=== PATIENT | male | born 1930 | race Caucasian/White ===

== ENCOUNTER 2016-10-16 14:57 | Emergency (ER) | payer MEDICARE ==
[~2016-10-16] VITALS: Ht 172.7 cm; Wt 70.0 kg
[~2016-10-16 14:57] MED LIST: ALBU8I INH; ALLE10TA5 PO; AMMO12CR10 TOP; ASPI81TA82 PO; BENGAY TOP; CLOB-50 TOP; DESE1CRE TOP; GLIP5 PO; LISI-360 PO; METHO500 PO; METO100T PO; NITR0.4S SL; PROT40TA PO; ROBISYP OR; SIMV80TA OR; TERA2CAP3 PO; TRAM50TA PO; [UNRECOGNIZED DRUG - CODE] TOP
[2016-10-16 14:59] VITALS: BP 78/54; PULSE 70; RESP 16; TEMP 98.2; O2SAT 98
[2016-10-16 15:04] VITALS: BP 69/48
--- NOTE | 2016-10-16 15:05 | PD ---
Physical Exam Time Seen by Provider: 15:05 Narrative 86 y/o male here with n/v/d. No fever. Some lower abdominal pain His has similar but less severe symptoms. Vital signs reviewed. bp 100/58. Seen at triage desk. Awaiting bed placement. Data Data Last Documented VS Vital Signs Date Time Temp Pulse Resp B/P Pulse Ox O2 Delivery O2 Flow Rate FiO2 10/16/16 15:07 100/58 10/16/16 14:59 98.2 70 16 98 MDM Medical Record Reviewed: Yes Supervised Visit with ROLAND: Ronald Waldrop Oct 16, 2016 15:05
[2016-10-16 15:07] VITALS: BP 100/58
== END 2016-10-16 17:30 | disposition left against medical advice (07) ==
LOC: NED 14:57
DX: R10.30 Lower abdominal pain, unspecified (principal)
CPT/HCPCS: 99281

== ENCOUNTER 2016-10-18 11:24 | Inpatient (IN) | payer MEDICARE ==
[~2016-10-18] VITALS: Ht 170.2 cm; Wt 69.3 kg
[2016-10-18] VITALS (7 sets, daily range): BP systolic 113–175; BP diastolic 60–84; PULSE 70–106; RESP 16–22; TEMP 97.5–98.4; O2SAT 95–98
--- NOTE | 2016-10-18 11:47 | PD ---
Physical Exam Time Seen by Provider: 11:38 Narrative 86yo M c/o diarrhea x 5 days. Denies abd pain, blood in stool. Blood sugar 39 this morning and drank Gatorade after. Hss not rechecked blood sugar. Also c/ o cough and SOB x3 days. Patient seen in triage. VS reviewed. Awaiting bed placement. Data Data Last Documented VS Vital Signs Date Time Temp Pulse Resp B/P Pulse Ox O2 Delivery O2 Flow Rate FiO2 10/18/16 11:27 97.5 75 16 140/64 98 Room Air MDM Supervised Visit with ROLAND: Ginny Diaz Oct 18, 2016 11:47
[2016-10-18] MEDS ORDERED: SODIUM CHLOR 0.9% 1000 ML INJ 1,000 ML IV SCH ×2 (11:54→12:57)
--- NOTE | 2016-10-18 11:56 | PD ---
HPI Chief Complaint: Diabetic Time Seen by Provider: 11:56 Travel History International Travel<30 days: No Contact w/Intl Traveler<30days: No Traveled to known affect area: No History of Present Illness HPI 86-year-old male with a history of hypertension, diabetes and COPD presents to the emergency department for evaluation of diarrhea, cough and shortness of breath. The patient states that he has had loose watery stools for the past 5 days. States that he has also had decreased appetite and poor oral intake. The patient states he's had a productive cough with mild shortness of breath over the past 3 days. Denies any fever, chills, nausea, vomiting, chest pain, abdominal pain, dysuria, lightheadedness or dizziness. States that this morning when he woke up and checked his blood sugar was 39. States that he drank a Gatorade and then came to the emergency department. He states he has not used any of his insulin today but cannot remember if he took his diabetic pill or not. States he has had several episodes of pneumonia over the past several years. States that his is currently ill with similar symptoms. No recent travel. No other complaints. PFSH Past Medical History Heart Rhythm Problems: No Cardiac Catheterization: No Cardiovascular Problems: Yes High Cholesterol: No Congestive Heart Failure: No Diabetes: Yes Patient Takes Glucophage: Yes Diminished Hearing: No Hypertension: Yes Musculoskeletal: Yes (LEFT KNEE ARTHROSCOPY (DIDNT HELP)) Respiratory: Yes Immunizations Current: No Renal Failure: Yes Past Surgical History Appendectomy: Yes Coronary Artery Bypass Graft: No Other Surgery: Yes (CYST REMOVED FROM BACK X 3) Social History Alcohol Use: No Tobacco Use: Yes Substance Use: No Allergies-Medications (Allergen,Severity, Reaction): Coded Allergies: Ibuprofen (Verified Allergy, Mild, RASH, 10/18/16) Reported Meds & Prescriptions Reported Meds & Active Scripts Active Reported Metoprolol Tartrate 100 Mg Tab 50 Mg PO BID Tramadol Hcl (Tramadol HCl) 50 Mg Tab 50 Mg PO QID PRN Terazosin Hcl (Terazosin HCl) 2 Mg Cap 2 Mg PO HS Simvastatin 80 Mg Tab 40 Mg OR HS Protonix (Pantoprazole Sodium) 40 Mg Tabdr 40 Mg PO BID Nitrostat (Nitroglycerin) 0.4 Mg Sub 0.4 Mg SL DIRECTED Robaxin 500 Mg Tab (Methocarbamol) 500 Mg Tab 750 Mg PO TID PRN Tono [place] (Menthol/Methyl Salicylate) 30 Gm Oint 1 Dose TOP QID PRN Allergy Relief (Loratadine) 10 Mg Tab 10 Mg PO DAILY Lisinopril 10 Mg Tab 5 Mg PO DAILY Guaifenesin 100 Mg/5 Ml Syp 2 Tsp OR QID PRN Glipizide 5 Mg Tab 2.5 Mg PO HS Glipizide 5 Mg Tab 5 Mg PO DAILY [place] ([place] Tar (Crude)) Liq 1 % TOP THREE TIMES A WEEK PRN Clotrimazole 1 % Cre 1 % TOP BID PRN Clobetasol Propionate (Clobetasol Propionate Emulsion) 0.05 % Aer 0.05 % TOP BID PRN Aspir-81 (Aspirin) 81 Mg Tab 81 Mg PO DAILY Ammonium Lactate (Lactic Acid) 12 % Cre 12 % TOP BID PRN Ventolin Hfa (Albuterol Sulfate) 8 Gm Aero 2 Puff INH QID PRN * SHAKE WELL BEFORE USE * Review of Systems Except as stated in HPI: all other systems reviewed are Neg Physical Exam Narrative GENERAL: Well-nourished and well-developed pleasant elderly male patient in no acute distress. SKIN: Warm and dry. HEAD: Normocephalic and atraumatic. EYES: No injection, drainage, or hyphema noted. PERRLA. EOMI. ENT: No nasal drainage noted. Oropharynx is clear. NECK: Supple and the trachea is midline. CARDIOVASCULAR: Regular rate and rhythm. RESPIRATORY: Wheezing in the left lower lobe. Wheezing noted in the right lower , mid and upper lobe. No accessory muscle use, rhonchi, or crackles. GASTROINTESTINAL: Abdomen is soft, non-tender, and nondistended. No rebound tenderness or guarding. MUSCULOSKELETAL: No obvious deformities, swelling, cyanosis, or ecchymosis is present throughout the upper and lower extremities. Patient has full range of motion without any signs of neurovascular compromise. NEUROLOGICAL: Awake, alert, and oriented. Normal speech and gait. Cranial nerves are grossly intact. Data Data Last Documented VS Vital Signs Date Time Temp Pulse Resp B/P Pulse Ox O2 Delivery O2 Flow Rate FiO2 10/18/16 13:34 75 18 113/60 97 Room Air 10/18/16 12:05 21 10/18/16 11:27 97.5 Orders Complete Blood Count With Diff (10/18/16 11:51) Comprehensive Metabolic Panel (10/18/16 11:51) Lactic Acid Sepsis Protocol (10/18/16 11:51) Magnesium (Mg) (10/18/16 11:51) Lipase (10/18/16 11:51) Urinalysis - C+S If Indicated (10/18/16 11:51) Influenzae A/B Antigen (10/18/16 11:51) Blood Culture (10/18/16 11:51) Chest, Single Ap (10/18/16 11:51) Blood Glucose (10/18/16 11:51) Ecg Monitoring (10/18/16 11:51) Iv Access Insert/Monitor (10/18/16 11:51) Oximetry (10/18/16 11:51) Oxygen Administration (10/18/16 11:51) Ckmb (Isoenzyme) Profile (10/18/16 11:54) Troponin I (10/18/16 11:54) Albuterol Neb (Albuterol Neb) (10/18/16 12:00) Sodium Chlor 0.9% 1000 Ml Inj (Ns 1000 M (10/18/16 11:54) Electrocardiogram (10/18/16 11:56) Sodium Chlor 0.9% 1000 Ml Inj (Ns 1000 M (10/18/16 12:57) Methylprednisolone So Succ Inj (Solumedr (10/18/16 13:30) Azithromycin Inj (Zithromax Inj) (10/18/16 13:30) Ceftriaxone Inj (Rocephin Inj) (10/18/16 13:30) Urine Culture (10/18/16 13:03) Admit Order (Ed Use Only) (10/18/16 13:44) Labs Laboratory Tests Test 10/18/16 10/18/16 10/18/16 12:08 12:12 13:03 White Blood Count 5.0 TH/MM3 Red Blood Count 4.25 MIL/MM3 Hemoglobin 12.0 GM/DL Hematocrit 36.5 % Mean Corpuscular Volume 86.0 FL Mean Corpuscular Hemoglobin 28.3 PG Mean Corpuscular Hemoglobin 32.9 % Concent Red Cell Distribution Width 14.3 % Platelet Count 87 TH/MM3 Mean Platelet Volume 8.1 FL Neutrophils (%) (Auto) 61.9 % Lymphocytes (%) (Auto) 24.6 % Monocytes (%) (Auto) 9.9 % Eosinophils (%) (Auto) 3.4 % Basophils (%) (Auto) 0.2 % Neutrophils # (Auto) 3.1 TH/MM3 Lymphocytes # (Auto) 1.2 TH/MM3 Monocytes # (Auto) 0.5 TH/MM3 Eosinophils # (Auto) 0.2 TH/MM3 Basophils # (Auto) 0.0 TH/MM3 CBC Comment AUTO DIFF Differential Total Cells 100 Counted Neutrophils % (Manual) 68 % Band Neutrophils % 3 % Lymphocytes % 17 % Monocytes % 8 % Eosinophils % 2 % Neutrophils # (Manual) 3.7 TH/MM3 Myelocytes 2 % Differential Comment AUTO DIFF CONFIRMED Platelet Estimate LOW Platelet Morphology Comment NORMAL Sodium Level 141 MEQ/L Potassium Level 4.1 MEQ/L Chloride Level 110 MEQ/L Carbon Dioxide Level 19.6 MEQ/L Anion Gap 11 MEQ/L Blood Urea Nitrogen 57 MG/DL Creatinine 2.71 MG/DL Estimat Glomerular Filtration 23 ML/MIN Rate Random Glucose 166 MG/DL Calcium Level 8.6 MG/DL Magnesium Level 2.1 MG/DL Total Bilirubin 0.4 MG/DL Aspartate Amino Transf 21 U/L (AST/SGOT) Alanine Aminotransferase 22 U/L (ALT/SGPT) Alkaline Phosphatase 70 U/L Total Creatine Kinase 46 U/L Troponin I LESS THAN 0.02 NG/ML Total Protein 6.6 GM/DL Albumin 3.3 GM/DL Lipase 2583 U/L Lactic Acid Level 1.7 mmol/L Urine Color LIGHT-YELLOW Urine Turbidity CLEAR Urine pH 5.5 Urine Specific [place] 1.009 Urine Protein TRACE mg/dL Urine Glucose (UA) NEG mg/dL Urine Ketones NEG mg/dL Urine Occult Blood NEG Urine Nitrite NEG Urine Bilirubin NEG Urine Urobilinogen LESS THAN 2.0 MG/DL Urine Leukocyte Esterase NEG Urine RBC LESS THAN 1 /hpf Urine WBC LESS THAN 1 /hpf Urine Bacteria RARE /hpf Microscopic Urinalysis Comment CATH-CULTURE IND MDM Medical Decision Making Medical Screen Exam Complete: Yes Emergency Medical Condition: Yes Differential Diagnosis Pneumonia versus bronchitis versus COPD exacerbation versus sepsis versus dehydration versus electrolyte abnormality Narrative Course 86-year-old male is brought to the emergency department for evaluation of diarrhea, cough and shortness of breath. Patient is afebrile, vital signs are stable. He reportedly had a hypoglycemic episode this morning with a blood sugar of 39. It is now 177 here in our emergency department. He's had decreased oral intake and diarrhea for days. He has wheezing on auscultation of the lungs. Abdominal examination is benign. IV access is obtained, labs drawn and sent. Patient is placed on cardiac symmetry and pulse oximetry monitoring. Patient is administered IV fluids and albuterol nebulizers. CBC shows anemia with a hemoglobin of 12.0, hematocrit 36.5. Platelet count is 87. CMP shows acute kidney injury with a creatinine of 2.71, BUN 57, GFR 23. Glucose is 166. Troponin is less than 0.02. Lipase is elevated at 2583. Lactic acid is 1.7. Chest x-ray is unremarkable. Influenza swab is negative. The patient is reassessed after receiving 2 albuterol nebulizers and reports improvement of symptoms. His wheezing has improved however he still has some wheezing in bilateral lung ha[place]on. He'll be given another nebulizer inflammatory 125 mg IV. Patient is also administered Zithromax 500 mg IV and Rocephin 1 g IV. Patient is given another liter of fluid. He'll be admitted to medicine service for acute pancreatitis, acute kidney injury and COPD exacerbation. I discussed the case with my attending physician Dr. Romero who is aware of the patients history, physical examination findings, and treatment plan. Physician Communication Physician Communication I spoke with Dr. Robles [facility] who agrees to admit the patient to her service. Diagnosis Primary Impression: Acute pancreatitis Qualified Code: K85.90 - Acute pancreatitis, unspecified complication status, unspecified pancreatitis type Additional Impressions: RICHARD (acute kidney injury) COPD exacerbation Ginny Oneil Oct 18, 2016 11:56
[2016-10-18] MEDS: RESP: ALBUTEROL 2.5 MG/3 ML NEB (SCH) INH (12:04)
--- NOTE | 2016-10-18 12:05 | RADRPT ---
EXAM DATE/TIME: 10/18/2016 12:02 [place] COMPARISON: CHEST SINGLE AP, January 17, 2013, 16:04. INDICATIONS : Chest pain and shortness of breath. MEDICAL HISTORY : Hypertension. Diabetes mellitus type II. SURGICAL HISTORY : Appendectomy. ENCOUNTER: Initial ACUITY: 3 days PAIN SCORE: 6/10 LOCATION: Bilateral chest FINDINGS: A single view of the chest demonstrates the lungs to be symmetrically aerated without evidence of mas s, infiltrate or effusion. The cardiomediastinal contours are unremarkable. Osseous structures are intact. CONCLUSION: No acute disease. No significant change has occurred. Mohan Joseph MD on October 18, 2016 at 12:04 Board Certified Radiologist. This report was verified electronically.
[2016-10-18 12:24] LABS: AUTOMATED NEUTROPHIL # 3.1 TH/MM3 (1.8-7.7); BASOPHIL % 0.2 % (0.0-2.0); EOSINOPHIL # 0.2 TH/MM3 (0-0.4); EOSINOPHIL % 3.4 % (0.0-4.0); HEMATOCRIT 36.5 % (39.0-51.0); LYMPH % 24.6 % (9.0-44.0); LYMPHOCYTE # 1.2 TH/MM3 (1.0-4.8); MEAN CORPUSCULAR HEMOGLOBIN 28.3 PG (27.0-34.0); MEAN CORPUSCULAR HGB CONC 32.9 % (32.0-36.0); MONO % 9.9 % (0.0-8.0); NEUT % 61.9 % (16.0-70.0); PLATELET COUNT 87 TH/MM3 (150-450); RED BLOOD COUNT 4.25 MIL/MM3 (4.50-5.90); RED CELL DISTRIBUTION WIDTH 14.3 % (11.6-17.2)
[2016-10-18 12:28] LABS: HEMO FLAGS AUTO DIFF
[2016-10-18 12:42] LABS: ALKALINE PHOSPHATASE 70 U/L (45-117); TOTAL BILIRUBIN ADULT 0.4 MG/DL (0.2-1.0)
[2016-10-18 12:45] LABS: ALT (GPT) 22 U/L (12-78); ANION GAP 11 MEQ/L (5-15); AST (GOT) 21 U/L (15-37); BICARBONATE 19.6 MEQ/L (21.0-32.0); BLOOD UREA NITROGEN 57 MG/DL (7-18); CHLORIDE 110 MEQ/L (98-107); GLOMERULAR FILTRATION RATE 23 ML/MIN (>89); MAGNESIUM 2.1 MG/DL (1.5-2.5); POTASSIUM 4.1 MEQ/L (3.5-5.1); SODIUM (NA) 141 MEQ/L (136-145)
[2016-10-18 13:06] LABS: BANDS 3 % (0-6); EOSINOPHILS 2 % (0-4); MYELOCYTES 2 % (0-0); NEUTROPHIL # MANUAL DIFF 3.7 TH/MM3 (1.8-7.7); POLYS (SEG NEUTROPHILS) 68 % (16-70); WBC DIFF SAMPLE 100
[2016-10-18 13:08] LABS: PLATELET ESTIMATE SMEAR LOW (NORMAL); PLATELET MORPHOLOGY NORMAL (NORMAL); SCAN/DIFF AUTO DIFF CONFIRMED
[2016-10-18 13:09] LABS: CREATINE KINASE 46 U/L (39-308)
[2016-10-18 13:24] LABS: BACTERIA, URINE RARE /hpf; BLOOD, URINE NEG (NEG); GLUCOSE,URINE NEG (NEG); KETONE, URINE NEG (NEG); NITRITE,URINE NEG (NEG); PH, URINE 5.5 (5.0-8.5); URINE COLOR LIGHT-YELLOW (YELLW/STRAW)
[2016-10-18 13:29] LABS: COMMENT (UR) CATH-CULTURE IND; CULTURE IF INDICATED CATH CULTURE IND
[2016-10-18] MEDS ORDERED: cefTRIAXone INJ 1,000 MG in SODIUM CHLORIDE 0.9% INJ 100 ML IV ONE (13:30)
[2016-10-18] MEDS ORDERED: AZITHROMYCIN INJ 500 MG in SODIUM CHLOR 0.9% 250 ML INJ 250 ML IV ONE (13:30)
[2016-10-18] MEDS ORDERED: methylPREDNISolone SOD SUCC 125 MG/2 ML VIAL IVP ONE (13:30)
[2016-10-18] MEDS ORDERED: GLUCAGON 1 MG/ML VIAL OTHER PRN ×2 (13:45→18:30)
[2016-10-18] MEDS ORDERED: NALOXONE HCL 0.4 MG/ML AMP IV PRN (13:45)
[2016-10-18] MEDS ORDERED: MAGNESIUM HYDROXIDE SUSP 30 ML CUP PO PRN (13:45)
[2016-10-18] MEDS ORDERED: LACTULOSE SYRUP 20 GM/30 ML CUP PO PRN (13:45)
[2016-10-18] MEDS ORDERED: SENNOSIDES 8.6 MG TAB PO PRN (13:45)
[2016-10-18] MEDS ORDERED: BISACODYL 10 MG SUPP RECTAL PRN (13:45)
[2016-10-18] MEDS ORDERED: DEXTROSE 50% IN WATER 50 ML VIAL(D50) IV PRN ×2 (13:45→18:30)
[2016-10-18] MEDS ORDERED: ONDANSETRON HCL 4 MG/2 ML VIAL IVP PRN (13:45)
[2016-10-18] MEDS ORDERED: SODIUM CHLORIDE 0.9% FLUSH 10 ML FLUSH IV FLUSH PRN (13:45)
[2016-10-18] MEDS: RESP: ALBUTEROL 2.5 MG/IPRATROPIUM 0.5 MG NEB (SCH) NEB (15:53)
--- NOTE | 2016-10-18 15:54 | HHI.HP ---
[facility] Ad[facility] Diagnosis Acute Pancreatitis, RICHARD, COPD Exacerbation Diagnoses: Travel History International Travel<30 Days: No Contact w/Intl Traveler <30 Da: No Traveled to Known Affected Are: No History of Present Illness Patient is a 86-year-old male with past medical history of COPD, hypertension, hyperlipidemia, diabetes, chronic renal insufficiency presented to the emergency room because he's been having loose stools for 5 times a day for the past 5 days. Of note, patient tells me that his just got discharged from the hospital from a virus where she had nausea vomiting and cough. Patient states that he also has been having "rattle in his chest ". He describes his stools as very watery. Non-bloody. He has also been coughing for the past 3-4 days and coughing up phlegm which he states is white. He denies any fevers however he admits to chills. He doesn't have a treatment counselor that he follows. He denies any abdominal pain, nausea vomiting, chest pain. He does not use any oxygen at home. His short of breath however he is able to speak in full sentences and states that his shortness of breath hasn't worsened since being in the emergency room. Son and grandson at bedside. He tells me that his last colonoscopy, he thinks was 4-5 years ago and was normal Review of Systems Except as stated in HPI: all other systems reviewed are Neg Past Family Social History Past Medical History COPD, hypertension, hyperlipidemia, diabetes, chronic renal insufficiency Past Surgical History Hernia repair 2, rotator cuff repair on the right, 3 lumbar spine surgeries, appendectomy, left eye surgery Reported Medications Reported Meds & Active Scripts Active Reported Metoprolol Tartrate 100 Mg Tab 50 Mg PO BID Tramadol Hcl (Tramadol HCl) 50 Mg Tab 50 Mg PO QID PRN Terazosin Hcl (Terazosin HCl) 2 Mg Cap 2 Mg PO HS Simvastatin 80 Mg Tab 40 Mg OR HS Protonix (Pantoprazole Sodium) 40 Mg Tabdr 40 Mg PO BID Nitrostat (Nitroglycerin) 0.4 Mg Sub 0.4 Mg SL DIRECTED Robaxin 500 Mg Tab (Methocarbamol) 500 Mg Tab 750 Mg PO TID PRN Tono Palomino (Menthol/Methyl Salicylate) 30 Gm Oint 1 Dose TOP QID PRN Allergy Relief (Loratadine) 10 Mg Tab 10 Mg PO DAILY Lisinopril 10 Mg Tab 5 Mg PO DAILY Guaifenesin 100 Mg/5 Ml Syp 2 Tsp OR QID PRN Glipizide 5 Mg Tab 2.5 Mg PO HS Glipizide 5 Mg Tab 5 Mg PO DAILY [place] ([place] Tar (Crude)) Liq 1 % TOP THREE TIMES A WEEK PRN Clotrimazole 1 % Cre 1 % TOP BID PRN Clobetasol Propionate (Clobetasol Propionate Emulsion) 0.05 % Aer 0.05 % TOP BID PRN Aspir-81 (Aspirin) 81 Mg Tab 81 Mg PO DAILY Ammonium Lactate (Lactic Acid) 12 % Cre 12 % TOP BID PRN Ventolin Hfa (Albuterol Sulfate) 8 Gm Aero 2 Puff INH QID PRN * SHAKE WELL BEFORE USE * Allergies: Coded Allergies: Ibuprofen (Verified Allergy, Mild, RASH, 10/18/16) Family History Mother was healthy and father had asthma Social History Quit smoking in 1994 and used to smoke a pack a day for 45 years. He denies any alcohol or illegal drug use. Physical Exam Vital Signs Vital Signs Date Time Temp Pulse Resp B/P Pulse Ox O2 Delivery O2 Flow Rate FiO2 10/18/16 13:34 75 18 113/60 97 Room Air 10/18/16 12:15 97 Room Air 10/18/16 12:15 97 Room Air 10/18/16 12:15 70 18 155/84 97 Room Air 10/18/16 12:05 96 21 10/18/16 11:27 97.5 75 16 140/64 98 Room Air Physical Exam GENERAL: This is a well-nourished, well-developed patient, in no apparent distress. SKIN: No rashes, ecchymoses or lesions. Cool and dry. HEAD: Atraumatic. Normocephalic. No temporal or scalp tenderness. EYES: Pupils equal round and reactive. Extraocular motions intact. No scleral icterus. No injection or drainage. ENT: Nose without drainage. Throat without erythema, tonsillar hypertrophy or exudate. Uvula midline. Airway patent. NECK: Trachea midline. No JVD or lymphadenopathy. Supple, nontender, no meningeal signs. CARDIOVASCULAR: Regular rate and rhythm without murmurs. RESPIRATORY: Expiratory wheezing auscultated bilaterally in the lower lung bases. Faint crackles noted on exam as well. Coughing on exam GASTROINTESTINAL: Abdomen soft, non-tender, nondistended. No palpable masses. No guarding. MUSCULOSKELETAL: Extremities without edema. No joint tenderness, effusion, or edema noted. No calf tenderness. Negative Homans sign bilaterally. NEUROLOGICAL: Awake and alert. Cranial nerves II through XII intact. Motor and sensory grossly within normal limits. Five out of 5 muscle strength in all muscle groups. Normal speech. Laboratory Laboratory Tests Test 10/18/16 10/18/16 10/18/16 12:08 12:12 13:03 White Blood Count 5.0 Red Blood Count 4.25 Hemoglobin 12.0 Hematocrit 36.5 Mean Corpuscular Volume 86.0 Mean Corpuscular Hemoglobin 28.3 Mean Corpuscular Hemoglobin 32.9 Concent Red Cell Distribution Width 14.3 Platelet Count 87 Mean Platelet Volume 8.1 Neutrophils (%) (Auto) 61.9 Lymphocytes (%) (Auto) 24.6 Monocytes (%) (Auto) 9.9 Eosinophils (%) (Auto) 3.4 Basophils (%) (Auto) 0.2 Neutrophils # (Auto) 3.1 Lymphocytes # (Auto) 1.2 Monocytes # (Auto) 0.5 Eosinophils # (Auto) 0.2 Basophils # (Auto) 0.0 CBC Comment AUTO DIFF Differential Total Cells 100 Counted Neutrophils % (Manual) 68 Band Neutrophils % 3 Lymphocytes % 17 Monocytes % 8 Eosinophils % 2 Neutrophils # (Manual) 3.7 Myelocytes 2 Differential Comment AUTO DIFF CONFIRMED Platelet Estimate LOW Platelet Morphology Comment NORMAL Sodium Level 141 Potassium Level 4.1 Chloride Level 110 Carbon Dioxide Level 19.6 Anion Gap 11 Blood Urea Nitrogen 57 Creatinine 2.71 Estimat Glomerular Filtration 23 Rate Random Glucose 166 Calcium Level 8.6 Magnesium Level 2.1 Total Bilirubin 0.4 Aspartate Amino Transf 21 (AST/SGOT) Alanine Aminotransferase 22 (ALT/SGPT) Alkaline Phosphatase 70 Total Creatine Kinase 46 Troponin I LESS THAN 0.02 Total Protein 6.6 Albumin 3.3 Lipase 2583 Lactic Acid Level 1.7 Urine Color LIGHT-YELLOW Urine Turbidity CLEAR Urine pH 5.5 Urine Specific [place] 1.009 Urine Protein TRACE Urine Glucose (UA) NEG Urine Ketones NEG Urine Occult Blood NEG Urine Nitrite NEG Urine Bilirubin NEG Urine Urobilinogen LESS THAN 2.0 Urine Leukocyte Esterase NEG Urine RBC LESS THAN 1 Urine WBC LESS THAN 1 Urine Bacteria RARE Microscopic Urinalysis Comment CATH-CULTURE IND Date/Time Procedure Status Source Growth 10/18/16 13:03 Urine Culture Received Urine Catheterized Urine Pending 10/18/16 12:12 Aerobic Blood Culture Received Blood Peripheral Pending 10/18/16 12:12 Anaerobic Blood Culture Received Blood Peripheral Pending 10/18/16 12:08 Influenza Types A,B Antigen (BEREKET) - Final Complete Nasal Washing NEGATIVE FOR FLU A AND B ANTIGEN.... Result Diagram: 10/18/16 1208 10/18/16 1208 Imaging Last Impressions Chest X-Ray 10/18/16 1151 Signed Impressions: Service Date/Time: Sunday, October 18, 2016 12:02 - CONCLUSION: No acute disease. No significant change has occurred. Mohan Joseph MD Assessment and Plan Assessment and Plan COPD exacerbation: Patient has been coughing and having "rattle in his chest for the past 4 days. Apparently, was diagnosed with viral infection was hospitalized and recently discharged home. No fevers but has had chills. On exam patient is wheezing. He received a dose of Solu-Medrol IV and Rocephin plus azithromycin in the emergency room. I will continue the Solu-Medrol at 40 mg IV every 8 hours, DuoNeb treatments scheduled and when necessary, will continue the Rocephin IV and azithromycin po for now. Encouraged use of incentive spirometer every hour while awake. I did explain to patient the importance of using the incentive spirometer. If not improvement will get pulmonology consult. For now monitor closely. Diarrhea: The past 5 days. Patient is dehydrated and hasn't been eating much. Appetite is poor. He thinks he ate some beans that might of been bad. Studies have been ordered. check cdiff. GI consult in place. Acute on chronic renal failure: Creatinine on admission was 2.71. [address] patient on normal saline at 100 ML's per hour. Cautioned due to patient's age Pancreatitis: Patient currently is not complaining of any abdominal pain however his lipase level is in the 1999. He denies any history of CHF, on normal saline at 100 ML's per hour. We'll be cautious due to patient's age to avoid fluid overload. DM on insulin at home but doesn't remember his meds. family to bring list of meds. cover w insulin ss and on diabetic diet. resume home meds once med rec entered. Code Status Patient wishes to be DNR Discussed Condition With patient, grandson, son and RN Sariah Moreira MD Oct 18, 2016 15:54
[2016-10-18] MEDS: hydrALAZINE HCL 10 MG TAB PO PRN (18:04)
[2016-10-18] MEDS: RESP: ALBUTEROL 2.5 MG/IPRATROPIUM 0.5 MG NEB (PRN) NEB (19:30)
[2016-10-18] MEDS: METOPROLOL TARTRATE 50 MG TAB PO SCH (20:53)
[2016-10-18] MEDS: INSULIN ASPART SUPPLEMENTAL SCALE SQ SCH (20:53)
[2016-10-18] MEDS: DOCUSATE SODIUM 50 MG/SENNA 8.6 MG TAB PO SCH (20:53)
[2016-10-18] MEDS: methylPREDNISolone SOD SUCC 40 MG/1 ML VIAL IV PUSH SCH (20:54)
[2016-10-18] MEDS: SODIUM CHLORIDE 0.9% FLUSH 10 ML FLUSH IV FLUSH SCH (20:54)
[2016-10-18] MEDS: SODIUM CHLOR 0.9% 1000 ML INJ 1,000 ML IV SCH (23:00)
[2016-10-18] MEDS ORDERED: ISOS20TA PO (23:39)
[2016-10-18] MEDS ORDERED: NOVONP2 SQ (23:39)
[2016-10-18] MEDS ORDERED: FLUD.1 PO ×2 (23:39)
[2016-10-18] MEDS ORDERED: GLIP10TA6 PO (23:39)
[2016-10-18] MEDS ORDERED: OMEP20TA PO (23:39)
[2016-10-18] MEDS ORDERED: GABA300C5 PO (23:39)
[2016-10-18] MEDS ORDERED: HYDR1CAP30 PO (23:39)
[2016-10-19] VITALS (7 sets, daily range): BP systolic 136–191; BP diastolic 60–89; PULSE 80–95; RESP 17–24; TEMP 96–98; O2SAT 95–98
[2016-10-19] MEDS: hydrALAZINE HCL 10 MG TAB PO PRN (00:17)
[2016-10-19] MEDS: RESP: ALBUTEROL 2.5 MG/IPRATROPIUM 0.5 MG NEB (SCH) NEB ×4 (03:46→22:33)
[2016-10-19] MEDS: methylPREDNISolone SOD SUCC 40 MG/1 ML VIAL IV PUSH SCH ×3 (06:08→21:43)
[2016-10-19] MEDS: INSULIN ASPART SUPPLEMENTAL SCALE SQ SCH ×4 (06:08→21:46)
[2016-10-19] MEDS: SODIUM CHLOR 0.9% 1000 ML INJ 1,000 ML IV SCH (06:14)
[2016-10-19 06:48] LABS: AUTOMATED NEUTROPHIL # 3.2 TH/MM3 (1.8-7.7); BASOPHIL % 0.1 % (0.0-2.0); EOSINOPHIL % 0.1 % (0.0-4.0); HEMATOCRIT 34.4 % (39.0-51.0); LYMPH % 12.6 % (9.0-44.0); LYMPHOCYTE # 0.5 TH/MM3 (1.0-4.8); MEAN CELL VOLUME 84.3 FL (80.0-100.0); MEAN CORPUSCULAR HEMOGLOBIN 28.3 PG (27.0-34.0); MEAN CORPUSCULAR HGB CONC 33.6 % (32.0-36.0); MONO % 2.8 % (0.0-8.0); NEUT % 84.4 % (16.0-70.0); PLATELET COUNT 88 TH/MM3 (150-450); RED BLOOD COUNT 4.08 MIL/MM3 (4.50-5.90); RED CELL DISTRIBUTION WIDTH 14.4 % (11.6-17.2); WHITE BLOOD COUNT 3.7 TH/MM3 (4.0-11.0)
[2016-10-19 06:55] LABS: HEMO FLAGS AUTO DIFF
[2016-10-19 07:31] LABS: BICARBONATE 17.9 MEQ/L (21.0-32.0); POTASSIUM 4.4 MEQ/L (3.5-5.1)
[2016-10-19] MEDS: METOPROLOL TARTRATE 50 MG TAB PO SCH ×2 (07:39→21:44)
[2016-10-19] MEDS: SODIUM CHLORIDE 0.9% FLUSH 10 ML FLUSH IV FLUSH SCH ×2 (07:39→21:45)
[2016-10-19] MEDS: DOCUSATE SODIUM 50 MG/SENNA 8.6 MG TAB PO SCH ×2 (07:39→21:44)
[2016-10-19 07:58] LABS: PLATELET ESTIMATE SMEAR LOW (NORMAL); PLATELET MORPHOLOGY NORMAL (NORMAL); SCAN/DIFF AUTO DIFF CONFIRMED
--- NOTE | 2016-10-19 08:59 | HHI.PR ---
Subjective Remarks Pt feels a little bit better. No loose stools since admission, no nausea or vomiting. has ordered breakfast. ate all his dinner per son. SOB same and not worsening. still coughing Objective Vitals Vital Signs Date Time Temp Pulse Resp B/P Pulse Ox O2 Delivery O2 Flow Rate FiO2 10/19/16 04:00 98.0 81 18 164/82 97 10/19/16 00:15 97.7 89 20 170/77 97 10/18/16 21:00 98.4 106 20 170/76 97 10/18/16 16:00 97.6 85 22 175/77 96 10/18/16 15:53 95 21 10/18/16 13:34 75 18 113/60 97 Room Air 10/18/16 12:15 97 Room Air 10/18/16 12:15 97 Room Air 10/18/16 12:15 70 18 155/84 97 Room Air 10/18/16 12:05 96 21 10/18/16 11:27 97.5 75 16 140/64 98 Room Air I/O 10/18/16 10/18/16 10/18/16 10/19/16 10/19/16 10/19/16 07:00 15:00 23:00 07:00 15:00 23:00 Intake Total 480 ml Balance 480 ml Intake Oral 480 ml # Voids 3 4 # Bowel Movements 1 Result Diagram: 10/19/16 0612 10/19/16 0612 Imaging Last Impressions Chest X-Ray 10/18/16 1151 Signed Impressions: Service Date/Time: Tuesday, October 18, 2016 12:02 - CONCLUSION: No acute disease. No significant change has occurred. Mohan Joseph MD Objective Remarks GENERAL: This is a well-nourished, well-developed patient, in no apparent distress. CARDIOVASCULAR: Regular rate and rhythm without murmurs. RESPIRATORY: Expiratory wheezing auscultated bilaterally in the lower lung bases. Faint crackles noted on exam as well. no coughing this morning noted. GASTROINTESTINAL: Abdomen soft, non-tender, nondistended. No palpable masses. No guarding. MUSCULOSKELETAL: Extremities without edema. NEUROLOGICAL: Awake and alert. Cranial nerves II through XII intact. Moves extremities. Normal speech. A/P Assessment and Plan COPD exacerbation: Patient has been coughing and having "rattle in his chest for the past 4 days. Apparently, was diagnosed with viral infection was hospitalized and recently discharged home. No fevers but has had chills. On exam patient is wheezing. He received a dose of Solu-Medrol IV and Rocephin plus azithromycin in the emergency room. on Solu-Medrol at 40 mg IV every 8 hours, DuoNeb treatments scheduled w chest PT and when necessary, will continue the Rocephin IV and azithromycin po for now. Encouraged use of incentive spirometer every hour while awake and added acapella. I did explain to patient the importance of using the incentive spirometer and acapella. If not improvement will get pulmonology consult. For now monitor closely. not requiring oxygen. Pt does have some crackles on exam, will give one time lasix 40mg IV x 1. check 2D echo Diarrhea: The past 5 days. Patient is dehydrated and hasn't been eating much. no loose stools since admission and unable to obtain stool studies thus far. He thinks he ate some beans that might of been bad. check cdiff. GI consult in place. pt started on lactinex Acute on chronic renal failure: Creatinine on admission was 2.71 --> 2.12. 2012 it was 1.67. decrease normal saline at 75 ML's per hour. Cautioned due to patient's age Pancreatitis: Patient only complains of some discomfort in the left upper quadrant, lipase level is in the 2500's now down to 705 this morning. He denies any history of CHF, on normal saline but will decrease to 75 ML's per hour. We'll be cautious due to patient's age to avoid fluid overload. check u/ s gallbladder DM on insulin at home but doesn't remember dosing. family to bring list of meds. on insulin ss and on diabetic diet. hold glipizide for now due to kidney function HTN: isosorbide, metoprolol resumed BPH: terazosin resumed Hyperlipidemia: pravastatin resumed. u/a has some bacteria and reflexed to urine cx which is pending. pt already on rocephin. DVT proph: heparin Discharge Planning d/c pending further work-up and clinical improvement. Sariah Moreira MD Oct 19, 2016 08:58
[2016-10-19] MEDS ORDERED: PILL SPLITTER OTHER PRN (09:00)
[2016-10-19] MEDS: HEPARIN SODIUM - SQ 10,000 UNITS/ML VIAL SQ SCH ×2 (09:00→21:43)
[2016-10-19] MEDS: LACTOBACILLUS ACIDOPHILUS 1 GM PACKET PO SCH ×4 (09:00→21:00)
[2016-10-19] MEDS ORDERED: FUROSEMIDE 40 MG/4 ML VIAL IV PUSH ONE (09:00)
[2016-10-19] MEDS ORDERED: PNEUMOCOCCAL POLYVALENT INJ 25 MCG/0.5 ML SYR IM ONE (10:00)
[2016-10-19] MEDS: PANTOPRAZOLE SOD 40 MG DELAYED RELEASE TAB PO SCH ×2 (10:08→21:44)
[2016-10-19] MEDS: ASPIRIN 81 MG CHEW TAB PO SCH (10:08)
[2016-10-19] MEDS: ISOSORBIDE MONONITRATE 20 MG TAB PO SCH (10:46)
--- NOTE | 2016-10-19 12:37 | PD.CONS ---
HPI History of Present Illness This is a 86 year old male who experienced onset diarrhea and lower abdominal cramping on Sunday. no other abodminal pain, n/v, blood in stool, fever. He says his was sick with diarrhea as well but that she had diverticulitis. he says he is feeling better and his diarrhea has improved since Sunday. he had colonoscopy 5 y ago, says a polyp was found and removed and he was told he didn't need any more colonoscopies. He is a poor historian and unable to tell me and further details or provide information on his medical history. (Debbie Burch) PFSH Past Medical History COPD, hypertension, hyperlipidemia, diabetes, chronic renal insufficiency Past Surgical History Hernia repair 2, rotator cuff repair on the right, 3 lumbar spine surgeries, appendectomy, left eye surgery (Debbie Burch) Coded Allergies: Ibuprofen (Verified Allergy, Mild, RASH, 10/18/16) Family History Mother was healthy and father had asthma Social History Quit smoking in 1994 and used to smoke a pack a day for 45 years. He denies any alcohol or illegal drug use. (Debbie Burch) Review of Systems Constitutional: DENIES: Fever Eyes: DENIES: Blurred vision Ears, nose, mouth, throat: DENIES: Hearing loss Respiratory: DENIES: Shortness of breath Cardiovascular: DENIES: Chest pain Gastrointestinal: COMPLAINS OF: Diarrhea, DENIES: Abdominal pain, Black stools , Bloody stools, Constipation, Nausea, Vomiting, Hematemesis Genitourinary: DENIES: Hematuria Musculoskeletal: DENIES: Muscle aches Integumentary: DENIES: Abnormal pigmentation Neurologic: DENIES: Abnormal gait Psychiatric: DENIES: Confusion (Debbie Burch) GI Exam Vitals I&O Vital Signs Date Time Temp Pulse Resp B/P Pulse Ox O2 Delivery O2 Flow Rate FiO2 10/19/16 08:00 96.0 80 24 191/87 95 188/89 10/19/16 04:00 98.0 81 18 164/82 97 10/19/16 00:15 97.7 89 20 170/77 97 10/18/16 21:00 98.4 106 20 170/76 97 10/18/16 16:00 97.6 85 22 175/77 96 10/18/16 15:53 95 21 10/18/16 13:34 75 18 113/60 97 Room Air I/O 10/18/16 10/18/16 10/18/16 10/19/16 10/19/16 10/19/16 07:00 15:00 23:00 07:00 15:00 23:00 Intake Total 480 ml Balance 480 ml Intake Oral 480 ml # Voids 3 4 # Bowel Movements 1 Imaging Last Impressions Chest X-Ray 10/18/16 1151 Signed Impressions: Service Date/Time: Tuesday, October 18, 2016 12:02 - CONCLUSION: No acute disease. No significant change has occurred. Mohan Joseph MD Laboratory Test 10/18/16 10/19/16 13:03 06:12 Urine Color LIGHT-YELLOW Urine Turbidity CLEAR Urine pH 5.5 Urine Specific Lamont 1.009 Urine Protein TRACE mg/dL Urine Glucose (UA) NEG mg/dL Urine Ketones NEG mg/dL Urine Occult Blood NEG Urine Nitrite NEG Urine Bilirubin NEG Urine Urobilinogen LESS THAN 2.0 MG/DL Urine Leukocyte Esterase NEG Urine RBC LESS THAN 1 /hpf Urine WBC LESS THAN 1 /hpf Urine Bacteria RARE /hpf Microscopic Urinalysis Comment CATH-CULTURE IND White Blood Count 3.7 TH/MM3 Red Blood Count 4.08 MIL/MM3 Hemoglobin 11.5 GM/DL Hematocrit 34.4 % Mean Corpuscular Volume 84.3 FL Mean Corpuscular Hemoglobin 28.3 PG Mean Corpuscular Hemoglobin 33.6 % Concent Red Cell Distribution Width 14.4 % Platelet Count 88 TH/MM3 Mean Platelet Volume 7.5 FL Neutrophils (%) (Auto) 84.4 % Lymphocytes (%) (Auto) 12.6 % Monocytes (%) (Auto) 2.8 % Eosinophils (%) (Auto) 0.1 % Basophils (%) (Auto) 0.1 % Neutrophils # (Auto) 3.2 TH/MM3 Lymphocytes # (Auto) 0.5 TH/MM3 Monocytes # (Auto) 0.1 TH/MM3 Eosinophils # (Auto) 0.0 TH/MM3 Basophils # (Auto) 0.0 TH/MM3 CBC Comment AUTO DIFF Differential Comment AUTO DIFF CONFIRMED Platelet Estimate LOW Platelet Morphology Comment NORMAL Sodium Level 145 MEQ/L Potassium Level 4.4 MEQ/L Chloride Level 115 MEQ/L Carbon Dioxide Level 17.9 MEQ/L Anion Gap 12 MEQ/L Blood Urea Nitrogen 40 MG/DL Creatinine 2.12 MG/DL Estimat Glomerular Filtration 30 ML/MIN Rate Random Glucose 196 MG/DL Calcium Level 7.9 MG/DL Lipase 705 U/L Date/Time Procedure Status Source Growth 10/19/16 11:00 Cryptosporidium Exam Received Stool Stool Pending 10/19/16 11:00 Stool Pus (BEREKET) Received Stool Stool Pending 10/19/16 11:00 Giardia Antigen (BEREKET) Received Stool Stool Pending 10/19/16 11:00 Received Stool Stool Pending 10/18/16 13:03 Urine Culture Received Urine Catheterized Urine Pending 10/18/16 12:12 Aerobic Blood Culture - Preliminary Resulted Blood Peripheral NO GROWTH IN 1 DAY 10/18/16 12:12 Anaerobic Blood Culture - Preliminary Resulted Blood Peripheral NO GROWTH IN 1 DAY 10/18/16 12:08 Influenza Types A,B Antigen (BEREKET) - Final Complete Nasal Washing NEGATIVE FOR FLU A AND B ANTIGEN.... Physical Examination HEENT: EOMI; normocephalic; atraumatic; no jaundice. CHEST: CTA CARDIAC: RRR ABDOMEN: Soft, nondistended, nontender; no hepatosplenomegaly; bowel sounds are present in all four quadrants. EXTREMITIES: No clubbing, cyanosis, or edema. SKIN: Normal; no rash; no jaundice. [employer] LEAD: No focal deficits; alert and oriented times three. (Debbie Burch) Assessment and Plan Plan ASSESSMENT - diarrhea - onset 2d ago. + sick contact but says his had diverticulitis ? no fever, n/v, pain, travel, abx use per pt. stool cx pending - elevated lipase - was >2000 on admission and now WNL. PLAN - await stool cx - if symptoms return or fail to improve consider diagnostic colonoscopy, CT - supportive care - further recommendations to follow This pt seen by myself and Dr Hill and this note was written on his behalf ( Debbie Burch) Physician Comments Seen and examined, plan as above, cultures pending, will need CT to role out pancreatitis or other intra-abdominal pathology causing asymptomatic increase in Lipase. (Cydney Hill MD) Debbie Burch Oct 19, 2016 12:37 Cydney Hill MD Oct 19, 2016 12:40
[2016-10-19] MEDS: AZITHROMYCIN 250 MG TAB PO SCH (13:58)
[2016-10-19] MEDS ORDERED: cefTRIAXone INJ 1,000 MG in SODIUM CHLORIDE 0.9% INJ 100 ML IV SCH (14:00)
--- NOTE | 2016-10-19 14:05 | EKG ---
Date Performed: 10/18/2016 Time Performed: 12:04:48 PTAGE: 86 years EKG: Sinus rhythm NORMAL ECG Compared to prior tracing no significant change PREVIOUS TRACING : 01/18/2013 04.11 DOCTOR: Rodriguez Cano Interpretating Date/Time 10/19/2016 13:58:17
[2016-10-19 14:09] LABS: C. DIFF EPI 027 PRESUMPTIVE NEGATIVE (NEGATIVE); C. DIFF TOXIN PCR NEGATIVE (NEGATIVE)
[2016-10-19] MEDS ORDERED: METO100T PO (16:03)
[2016-10-19] MEDS ORDERED: SIMV40TA PO (16:03)
[2016-10-19] MEDS ORDERED: NITR1SUB3 SL (16:03)
[2016-10-19] MEDS ORDERED: TERA2CAP3 PO (16:03)
[2016-10-19] MEDS ORDERED: PANT40TA3 PO (16:03)
[2016-10-19] MEDS ORDERED: TRAM50TA PO (16:03)
[2016-10-19] MEDS ORDERED: BENGGEL3 TOPICAL (16:19)
[2016-10-19] MEDS ORDERED: ALLE10TA PO (16:19)
[2016-10-19] MEDS ORDERED: CLOB0.059 TOPICAL (16:19)
[2016-10-19] MEDS ORDERED: CLOTR1%T TOPICAL (16:19)
[2016-10-19] MEDS ORDERED: AMMO12CR4 TOP (16:19)
[2016-10-19] MEDS ORDERED: [UNRECOGNIZED DRUG - CODE] TOPICAL (16:19)
[2016-10-19] MEDS ORDERED: GUAI100S7 PO (16:19)
[2016-10-19] MEDS ORDERED: ASPI81CH CHEW (16:19)
[2016-10-19] MEDS ORDERED: LISI10TA3 PO (16:19)
[2016-10-19] MEDS ORDERED: VENTAER INH (16:19)
[2016-10-19] MEDS ORDERED: METH750T PO (16:19)
--- NOTE | 2016-10-19 17:00 | ECHRPT ---
Indication: SOB CONCLUSIONS Normal left ventricular size and wall thickness. Left ventricular diastolic function parameters are normal. The left ventricular systolic function is hyperdynamic with an estimated ejection fraction in the ra nge of 65- 70%. BP: 188 / 89 HR: Rhythm: MEASUREMENTS (Male / Female) Normal Values Technical Quality: 2D ECHO LV Diastolic Diameter PLAX 4.5 cm 4.2 - 5.9 / 3.9 - 5.3 cm LV Systolic Diameter PLAX 3.1 cm IVS Diastolic Thickness 0.8 cm 0.6 - 1.0 / 0.6 - 0.9 cm LVPW Diastolic Thickness 0.7 cm 0.6 - 1.0 / 0.6 - 0.9 cm LV Relative Wall Thickness 0.3 RV Internal Dim ED PLAX 1.9 cm M-MODE Aortic Root Diameter MM 3.0 cm AV Cusp Separation MM 1.9 cm DOPPLER AV Peak Velocity 182.0 cm/s AV Peak Gradient 13.2 mmHg LVOT Peak Velocity 96.5 cm/s LVOT Peak Gradient 3.7 mmHg Mitral E Point Velocity 55.8 cm/s Mitral A Point Velocity 78.0 cm/s Mitral E to A Ratio 0.7 LV E' Lateral Velocity 8.0 cm/s Mitral E to LV E' Lateral Ratio 7.0 LV E' Septal Velocity 6.6 cm/s Mitral E to LV E' Septal Ratio 8.4 TR Peak Velocity 267.0 cm/s TR Peak Gradient 28.5 mmHg FINDINGS Left Ventricle Normal left ventricular size and wall thickness. Left ventricular diastolic function parameters are normal. The left ventricular systolic function is hyperdynamic with an estimated ejection fraction in the ra nge of 65- 70%. Right Ventricle Normal right ventricular size and systolic function. Left Atrium The left atrial size is normal. Right Atrium The right atrial size is normal. Atrial Septum Normal atrial septal thickness without atrial level shunting by limited color doppler interrogation. Aorta The aortic root and proximal ascending aorta are normal in size on limited imaging. Mitral Valve Structurally normal mitral valve. No mitral valve stenosis or regurgitation. Aortic Valve Trileaflet aortic valve. No aortic valve stenosis or regurgitation. Tricuspid Valve Structurally normal tricuspid valve. No tricuspid valve stenosis or regurgitation. Pulmonary Valve The pulmonary valve is not well visualized. Vessels The inferior vena cava is normal in size. Pericardium No pericardial effusion. Mert Kennedy MD, FACC (Electronically Signed) Final Date:19 October 2016 17:00
[2016-10-19] MEDS: GABAPENTIN 300 MG CAP PO SCH (21:44)
[2016-10-19] MEDS: TERAZOSIN HCL 1 MG CAP PO SCH (21:44)
[2016-10-19] MEDS: PRAVASTATIN SOD 40 MG TAB PO SCH (21:44)
[2016-10-20] VITALS (8 sets, daily range): BP systolic 120–168; BP diastolic 61–87; PULSE 65–105; RESP 16–20; TEMP 96.6–98; O2SAT 95–98
[2016-10-20] MEDS: SODIUM CHLOR 0.9% 1000 ML INJ 1,000 ML IV SCH ×2 (01:22→13:17)
[2016-10-20] MEDS: RESP: ALBUTEROL 2.5 MG/IPRATROPIUM 0.5 MG NEB (SCH) NEB ×4 (03:43→23:12)
[2016-10-20] MEDS: INSULIN ASPART SUPPLEMENTAL SCALE SQ SCH ×4 (06:23→22:24)
[2016-10-20] MEDS: methylPREDNISolone SOD SUCC 40 MG/1 ML VIAL IV PUSH SCH ×3 (06:23→20:46)
[2016-10-20 06:24] LABS: AUTOMATED NEUTROPHIL # 6.6 TH/MM3 (1.8-7.7); BASOPHIL % 0.1 % (0.0-2.0); HEMATOCRIT 33.5 % (39.0-51.0); HEMO FLAGS DIFF FINAL; LYMPH % 6.4 % (9.0-44.0); LYMPHOCYTE # 0.5 TH/MM3 (1.0-4.8); MEAN CELL VOLUME 84.4 FL (80.0-100.0); MEAN CORPUSCULAR HEMOGLOBIN 28.5 PG (27.0-34.0); MEAN CORPUSCULAR HGB CONC 33.7 % (32.0-36.0); MONO % 4.6 % (0.0-8.0); NEUT % 88.9 % (16.0-70.0); PLATELET COUNT 101 TH/MM3 (150-450); RED BLOOD COUNT 3.96 MIL/MM3 (4.50-5.90); RED CELL DISTRIBUTION WIDTH 14.3 % (11.6-17.2); WHITE BLOOD COUNT 7.5 TH/MM3 (4.0-11.0)
[2016-10-20 06:48] LABS: BICARBONATE 20.9 MEQ/L (21.0-32.0); POTASSIUM 3.7 MEQ/L (3.5-5.1)
[2016-10-20] MEDS: METOPROLOL TARTRATE 50 MG TAB PO SCH ×2 (08:43→20:46)
[2016-10-20] MEDS: AZITHROMYCIN 250 MG TAB PO SCH (08:43)
[2016-10-20] MEDS: DOCUSATE SODIUM 50 MG/SENNA 8.6 MG TAB PO SCH ×2 (08:43→21:00)
[2016-10-20] MEDS: HEPARIN SODIUM - SQ 10,000 UNITS/ML VIAL SQ SCH ×2 (08:44→20:45)
[2016-10-20] MEDS: PANTOPRAZOLE SOD 40 MG DELAYED RELEASE TAB PO SCH ×2 (08:44→20:46)
[2016-10-20] MEDS: ISOSORBIDE MONONITRATE 20 MG TAB PO SCH (08:44)
[2016-10-20] MEDS: ASPIRIN 81 MG CHEW TAB PO SCH (08:44)
[2016-10-20] MEDS ORDERED: FLUDROCORTISONE ACETATE 0.1 MG TAB PO SCH (08:45)
[2016-10-20] MEDS: FLUDROCORTISONE ACETATE 0.1 MG TAB PO SCH (08:49)
[2016-10-20] MEDS: SODIUM CHLORIDE 0.9% FLUSH 10 ML FLUSH IV FLUSH SCH ×2 (08:49→20:46)
[2016-10-20] MEDS: LACTOBACILLUS ACIDOPHILUS 1 GM PACKET PO SCH ×4 (08:53→20:54)
--- NOTE | 2016-10-20 09:26 | HHI.PR ---
Subjective Remarks Pt states that yesterday he has 4 BMs, 2 were normal, one was soft and one was loose. this morning he already had 3 runny stools. SOB is improving but still present especially w ambulation. he is still coughing. Objective Vitals Vital Signs Date Time Temp Pulse Resp B/P Pulse Ox O2 Delivery O2 Flow Rate FiO2 10/20/16 08:00 97.5 91 16 163/75 96 10/20/16 07:50 96 10/20/16 04:00 97.6 96 19 160/74 96 10/20/16 00:00 97.9 105 18 121/61 97 10/19/16 20:13 98 21 10/19/16 20:00 97.8 95 17 139/60 98 10/19/16 16:00 97.4 82 20 136/64 96 10/19/16 12:00 97.8 85 22 149/75 96 I/O 10/19/16 10/19/16 10/19/16 10/20/16 10/20/16 10/20/16 07:00 15:00 23:00 07:00 15:00 23:00 Intake Total 480 ml 1188 ml 427 ml Output Total 100 ml Balance 480 ml 1188 ml 327 ml Intake Oral 480 ml 800 ml 0 ml IV Total 388 ml 427 ml Output Urine Total 100 ml # Voids 4 10 2 5 # Bowel Movements 1 Result Diagram: 10/20/16 0610 10/20/16 0610 Imaging Last Impressions Chest X-Ray 10/18/16 1151 Signed Impressions: Service Date/Time: Tuesday, October 18, 2016 12:02 - CONCLUSION: No acute disease. No significant change has occurred. Mohan Joseph MD Objective Remarks GENERAL: This is a well-nourished, well-developed patient, in no apparent distress. CARDIOVASCULAR: Regular rate and rhythm without murmurs. RESPIRATORY: faint wheezing auscultated bilaterally in the lower lung bases. crackles and some rales noted on exam. no coughing this morning noted. GASTROINTESTINAL: Abdomen soft, non-tender, nondistended. No palpable masses. No guarding. MUSCULOSKELETAL: Extremities without edema. NEUROLOGICAL: Awake and alert. Cranial nerves II through XII intact. Moves extremities. Normal speech. A/P Assessment and Plan COPD exacerbation: Patient has been coughing and having "rattle in his chest for the past 4 days prior to admission. Apparently, was diagnosed with viral infection was hospitalized and recently discharged home. No fevers but has had chills. On exam patient is wheezing. He received a dose of Solu- Medrol IV and Rocephin plus azithromycin in the emergency room. on Solu- Medrol at 40 mg IV every 8 hours, DuoNeb treatments scheduled w chest PT and when necessary, will continue the Rocephin IV and azithromycin po for now. Encouraged use of incentive spirometer every hour while awake and acapella q4hr. I did explain to patient the importance of using the incentive spirometer and acapella. Pt is somewhat improving but lung exam still concerning, will check CT chest and get pulmonology consult. not requiring oxygen. s/p one time lasix 40mg IV x 1. 2D echo showed EF of 65-70% and no diastolic dysfunction. Diarrhea: The past 5 days. Patient is dehydrated and hasn't been eating much. had three episodes of loose stools this morning. cdiff neg. GI following. on lactinex Acute on chronic renal failure: Creatinine on admission was 2.71 --> 2.12--> 2.22. 2012 it was 1.67. continue normal saline at 75 ML's per hour. Cautioned due to patient's age Pancreatitis: Patient only complains of some discomfort in the left upper quadrant, lipase level is in the 2500's now down to 486 this morning. u/s gallbladder currently being done DM on insulin at home but doesn't remember dosing. family to bring list of meds. on insulin ss and on diabetic diet. hold glipizide for now due to kidney function HTN: on isosorbide, metoprolol BPH: on terazosin Hyperlipidemia: on pravastatin u/a has some bacteria and reflexed to urine cx which was neg. DVT proph: heparin Discharge Planning pulm consult placed CT chest ordered GI following as pt continues to have loose stools. f/u stool studies continue to wean steroids Sariah Moreira MD Oct 20, 2016 09:26
--- NOTE | 2016-10-20 10:44 | RADRPT ---
EXAM DATE/TIME: 10/20/2016 10:20 [facility] COMPARISON: No previous studies available for comparison. INDICATIONS : Shortness of breath. RADIATION DOSE: 4.20 CTDIvol (mGy) MEDICAL HISTORY : Diabetes mellitus type 2. Hypertension. GERD, Hiatal hernia, COPD SURGICAL HISTORY : Appendectomy. ENCOUNTER: Subsequent ACUITY: 1 day PAIN SCALE: LOCATION: chest TECHNIQUE: Volumetric scanning of the chest was performed. Using automated exposure control and adjustment of t he mA and/or kV according to patient size, radiation dose was kept as low as reasonably achievable to obtain optimal diagnostic quality images. FINDINGS: LUNGS: There is a 5 mm subpleural nodule in the left lung apex. There is a 5 mm groundglass nodule in the ri ght upper lobe. Otherwise, no significant consolidation or airspace disease. PLEURAE: There is no pleural thickening or pleural effusion. MEDIASTINUM: Mikey coronary artery calcifications. Subcentimeter mediastinal nodes which do not meet CT size crit eria. Mitral valve calcifications. Heart is normal in appearance without significant pericardial effu tonny. AXILLAE: Within normal limits. No lymphadenopathy. MUSCULOSKELETAL: No significant abnormal lytic or blastic bony lesion. Degenerative spondylosis of the thoracic spine. MISCELLANEOUS: The visualized upper abdominal organs demonstrate no acute abnormality. CONCLUSION: 1. No significant pleural effusion, airspace consolidation, or pneumothorax to explain patient's shor tness of breath. 2. 5 mm solid subpleural nodule in the left lung apex. Please see Fleischner criteria below for follo wu recommendations. 3. 5 mm sub-solid nodule in the right upper lobe. No followup is recommended per 2017 Fleischner crit eria. Guidelines from the 2017 Fleischner Society for the follow-up and management of newly detected indete rminate pulmonary nodules in persons >34 years old depend on nodule size (average of length and width ) and underlying risk factors (including smoking and other risk factors). Please consider the follow ing recommendations after clinical assessment of risk factors. For 4-6 mm nodules: In low risk patie nts no followup is recommended. In high risk patients, follow-up CT at 12 months; if unchanged, no fu rther follow-up needed. Zay Salgado MD on October 20, 2016 at 10:32 Board Certified Radiologist. This report was verified electronically.
--- NOTE | 2016-10-20 11:24 | RADRPT ---
EXAM DATE/TIME: 10/20/2016 09:15 [facility] COMPARISON: CT THORAX W/O CONTRAST, October 20, 2016, 10:20. INDICATIONS : Abdominal pain. MEDICAL HISTORY : Hypercholesterolemia. Hypertension. Chronic obstructive pulmonary disease. GERD. Emphysema. Dyspnea. Hiatal hernia. Diabetes. Pancreatitis. Chronic renal insufficiency. SURGICAL HISTORY : Appendectomy. Right shoulder surgery. Back surgery. Hernia repair. Left eye surgery. ENCOUNTER: Initial ACUITY: 2 days PAIN SCORE: 1/10 LOCATION: Right upper quadrant MEASUREMENTS: LIVER: 14.4 cm length COMMON DUCT: 4 mm RIGHT KIDNEY: 9.4 x 4.5 x 5.2 cm FINDINGS: LIVER: Normal echotexture without focal lesion or ductal dilatation. Hepatopedal flow within the portal vein . COMMON DUCT: No intraluminal mass or stone visualized. GALLBLADDER: Contains no stones, demonstrates no wall thickening or pericholecystic fluid. PANCREAS: The visualized portions are within normal limits. RIGHT KIDNEY: No evidence of hydronephrosis, stone, or mass.Multiple anechoic foci with posterior acoustical enhanc ement consistent with simple cysts. The largest measures 2.5 cm within the midpole. CONCLUSION: 1. No acute abnormality. 2. Small right renal cysts. Asif Masterson Jr., MD on October 20, 2016 at 10:40 Board Certified Radiologist. This report was verified electronically.
[2016-10-20] MEDS ORDERED: ACETAMINOPHEN 325 MG TAB PO PRN (15:00)
--- NOTE | 2016-10-20 16:13 | HHI.GIFU ---
Subjective Remarks Pt says he had one loose BM today. No n/v, pain. He is eating well. (Debbie Burch) Objective Vitals I&O Vital Signs Date Time Temp Pulse Resp B/P Pulse Ox O2 Delivery O2 Flow Rate FiO2 10/20/16 12:00 97.1 85 20 120/65 97 10/20/16 08:00 97.5 91 16 163/75 96 10/20/16 07:50 96 10/20/16 04:00 97.6 96 19 160/74 96 10/20/16 00:00 97.9 105 18 121/61 97 10/19/16 20:13 98 21 10/19/16 20:00 97.8 95 17 139/60 98 I/O 10/19/16 10/19/16 10/19/16 10/20/16 10/20/16 10/20/16 07:00 15:00 23:00 07:00 15:00 23:00 Intake Total 480 ml 1188 ml 427 ml 440 ml Output Total 100 ml Balance 480 ml 1188 ml 327 ml 440 ml Intake Oral 480 ml 800 ml 0 ml 440 ml IV Total 388 ml 427 ml Output Urine Total 100 ml # Voids 4 10 2 5 3 # Bowel Movements 1 1 Laboratory Laboratory Tests Test 10/20/16 06:10 White Blood Count 7.5 Red Blood Count 3.96 Hemoglobin 11.3 Hematocrit 33.5 Mean Corpuscular Volume 84.4 Mean Corpuscular Hemoglobin 28.5 Mean Corpuscular Hemoglobin 33.7 Concent Red Cell Distribution Width 14.3 Platelet Count 101 Mean Platelet Volume 7.6 Neutrophils (%) (Auto) 88.9 Lymphocytes (%) (Auto) 6.4 Monocytes (%) (Auto) 4.6 Eosinophils (%) (Auto) 0.0 Basophils (%) (Auto) 0.1 Neutrophils # (Auto) 6.6 Lymphocytes # (Auto) 0.5 Monocytes # (Auto) 0.3 Eosinophils # (Auto) 0.0 Basophils # (Auto) 0.0 CBC Comment DIFF FINAL Differential Comment Sodium Level 144 Potassium Level 3.7 Chloride Level 112 Carbon Dioxide Level 20.9 Anion Gap 11 Blood Urea Nitrogen 43 Creatinine 2.22 Estimat Glomerular Filtration 28 Rate Random Glucose 240 Calcium Level 8.2 Lipase 486 Date/Time Procedure Status Source Growth 10/19/16 11:00 Cryptosporidium Exam - Final Complete Stool Stool NEGATIVE - NO CRYPTOSPORIDIUM ANTIGEN... 10/19/16 11:00 Stool Pus (BEREKET) - Final Complete Stool Stool NO WBC'S SEEN 10/19/16 11:00 Giardia Antigen (BEREKET) - Final Complete Stool Stool NEGATIVE - NO GIARDIA ANTIGEN DETECTE... 10/19/16 11:00 - Final Complete Stool Stool NO ENTERIC PATHOGENS DETECTED BY PCR... 10/18/16 13:03 Urine Culture - Final Complete Urine Catheterized Urine <10,000 CFU/ML MIXED GRAM POSITIVE FL... 10/18/16 12:12 Aerobic Blood Culture - Preliminary Resulted Blood Peripheral NO GROWTH IN 2 DAYS 10/18/16 12:12 Anaerobic Blood Culture - Preliminary Resulted Blood Peripheral NO GROWTH IN 2 DAYS 10/18/16 12:08 Influenza Types A,B Antigen (BEREKET) - Final Complete Nasal Washing NEGATIVE FOR FLU A AND B ANTIGEN.... Physical Exam HEENT: EOMI; normocephalic; atraumatic; no jaundice. CHEST: CTA CARDIAC: RRR ABDOMEN: Soft, nondistended, nontender; no hepatosplenomegaly; bowel sounds are present in all four quadrants. EXTREMITIES: No clubbing, cyanosis, or edema. SKIN: Normal; no rash; no jaundice. 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 (Debbie Burch) Assessment and Plan Plan ASSESSMENT - diarrhea - onset 2d ago. + sick contact but says his had diverticulitis ? no fever, n/v, pain, travel, abx use per pt. stool cx neg, c diff neg - elevated lipase - was >2000 on admission and now improving PLAN - CT abd - NOEL - if symptoms return or fail to improve consider diagnostic colonoscopy - supportive care - further recommendations to follow This pt seen by myself and Dr Turner and this note was written on his behalf ( Debbie Burch) Physician Comments patient seen and examined agree with above cont current supportive care monitor labs (Geo Turner MD) Debbie Burch Oct 20, 2016 16:13 Geo Turner MD Oct 20, 2016 18:09
--- NOTE | 2016-10-20 16:34 | MB ---
cc: Samuel PEDROZA DATE OF CONSULTATION: 10/20/2016 REASON FOR CONSULTATION: Pulmonary consultation. HISTORY Mr. Marina is an 86-year-old white male who presented with persistent diarrhea and then was noted to be short of breath. He had a longstanding smoking history although he stopped smoking about 10 years ago when they diagnosed him with COPD at the [facility]. It is not clear to me from taking his history that he is on any consistent therapy for this and says that normally does not experience shortness of breath. However, his sons at the bedside and he said he has been on oxygen at home before through the [facility] although he is not currently. The patient says that he does he is short of breath with exertion but he has no chest pain. He has had a little cough but no purulent sputum. No hemoptysis. Denies hospitalizations for COPD in the past. Former smoking history but again quit probably 10 years ago after 40-50 pack-years. Currently feeling better since hospitalization. He is being evaluated for diarrhea and has been started on antibiotics albuterol nebulized treatments and IV Solu-Medrol with good results. Chest x-ray is really unrevealing. CT scan was performed that he has a small nodule in the left apex. PAST MEDICAL HISTORY: 1. Additional past history hypertension 2. Diabetes 3. Chronic renal insufficiency 4. hyperlipidemia. ALLERGIES IBUPROFEN. MEDICATIONS Reviewed in the medical record. PAST SURGICAL HISTORY 1. Hernia repair. 2. Rotator cuff repair 3. Three lumbar spine surgeries 4. Appendectomy. SOCIAL HISTORY: He has been a chaplaincy in terms of jobs. 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 No obvious toxic inhalation exposures. Does not drink alcohol. REVIEW OF SYSTEMS He had nausea and vomiting prior to presentation and a lipase was markedly elevated. He denies alcohol as had known right upper quadrant pain to suggest any type of gallbladder disease or inflammation. He is being followed by GI now. PHYSICAL EXAMINATION VITAL SIGNS: 97, 120/60, pulse 80, respirations 18, sat 96% on room air. HEAD, EYES, EARS, NOSE, AND THROAT: sclerae anicteric. Pharynx is clear. NECK: Neck veins are flat. CHEST: Chest does reveal some on scattered wheezing and mild congestion. HEART: Regular rhythm. No harsh murmur. ABDOMEN: Abdomen is soft. EXTREMITIES: He has no edema or calf tenderness. No cyanosis. LABORATORY FINDINGS: White count 7500, hemoglobin is 11.3, BUN is 43, creatinine of 2.2. Mr. Marina presented with gastrointestinal symptoms actually with diarrhea but was noted to be congested with wheezing and probably does have underlying COPD. He has responded well to the current therapy. I think we can drop his steroids back a bit. Continue his nebulized aerosol treatments and then maybe place him on a maintenance therapy prior to discharge so that [facility] and have further outpatient testing as well. Further diagnostic and/or therapeutic range will depend on his response and ongoing clinical course. Thank you for asking me to see him in consultation. R. MD LILIAM Rivera/jerson /2:51 PM /3:22 PM
[2016-10-20] MEDS ORDERED: DIATRIZOATE MEGLUM/DIATRIZOATE SOD 9 ML CUP PO ONE (19:00)
[2016-10-20] MEDS: TERAZOSIN HCL 1 MG CAP PO SCH (20:46)
[2016-10-20] MEDS: GABAPENTIN 300 MG CAP PO SCH (20:46)
[2016-10-20] MEDS: PRAVASTATIN SOD 40 MG TAB PO SCH (20:46)
--- NOTE | 2016-10-20 21:41 | RADRPT ---
EXAM DATE/TIME: 10/20/2016 21:17 [facility] COMPARISON: No previous studies available for comparison. INDICATIONS : Upper abdominal pain; possible pancreatitis. ORAL CONTRAST: Prescribed oral contrast ingested. RADIATION DOSE: 10.54 CTDIvol (mGy) MEDICAL HISTORY : Chronic obstructive pulmonary disease. Hypertension. Cardiovascular disease SURGICAL HISTORY : Appendectomy. ENCOUNTER: Initial ACUITY: 1 day PAIN SCALE: 5/10 LOCATION: abdomen TECHNIQUE: Volumetric scanning of the abdomen and pelvis was performed. Using automated exposure control and ad justment of the mA and/or kV according to patient size, radiation dose was kept as low as reasonably achievable to obtain optimal diagnostic quality images. FINDINGS: Lung bases are clear. Moderate coronary calcifications. No significant abnormality in the liver, spleen, adrenals or pancreas. 2.8 cm left renal cyst. No hyd ronephrosis. No calcified gallstones. No free fluid or free air. No bowel obstruction. Bladder mildly distended. Previous appendectomy. No peripancreatic fluid or edema to suggest acute pancreatitis. CONCLUSION: 1. Negative for acute pancreatitis on CT examination. No calcified gallstones or biliary ductal dilat ation. 2. No acute findings within the abdomen and pelvis. Ceasar Shoemaker MD on October 20, 2016 at 21:35 Board Certified Radiologist. This report was verified electronically.
[2016-10-21] VITALS (9 sets, daily range): BP systolic 124–178; BP diastolic 64–85; PULSE 80–88; RESP 18–22; TEMP 96.4–97.8; O2SAT 95–98
[2016-10-21] MEDS ORDERED: MELATONIN 5 MG TAB PO ONE (01:15)
[2016-10-21] MEDS: RESP: ALBUTEROL 2.5 MG/IPRATROPIUM 0.5 MG NEB (PRN) NEB (04:02)
[2016-10-21] MEDS: INSULIN ASPART SUPPLEMENTAL SCALE SQ SCH ×4 (05:45→21:05)
[2016-10-21] MEDS: hydrALAZINE HCL 10 MG TAB PO PRN (05:46)
[2016-10-21] MEDS: SODIUM CHLORIDE 0.9% FLUSH 10 ML FLUSH IV FLUSH SCH ×2 (09:00→21:02)
[2016-10-21] MEDS: DOCUSATE SODIUM 50 MG/SENNA 8.6 MG TAB PO SCH (09:00)
[2016-10-21 09:02] LABS: HEMATOCRIT 33.8 % (39.0-51.0); MEAN CELL VOLUME 84.5 FL (80.0-100.0); MEAN CORPUSCULAR HEMOGLOBIN 28.4 PG (27.0-34.0); MEAN CORPUSCULAR HGB CONC 33.6 % (32.0-36.0); PLATELET COUNT 102 TH/MM3 (150-450); RED CELL DISTRIBUTION WIDTH 14.4 % (11.6-17.2); REVIEW FLAG FINAL; WHITE BLOOD COUNT 8.4 TH/MM3 (4.0-11.0)
[2016-10-21] MEDS: methylPREDNISolone SOD SUCC 40 MG/1 ML VIAL IV PUSH SCH (09:12)
[2016-10-21] MEDS: HEPARIN SODIUM - SQ 10,000 UNITS/ML VIAL SQ SCH ×2 (09:13→21:04)
[2016-10-21] MEDS: SODIUM CHLOR 0.9% 1000 ML INJ 1,000 ML IV SCH (09:13)
[2016-10-21] MEDS: PANTOPRAZOLE SOD 40 MG DELAYED RELEASE TAB PO SCH ×2 (09:14→21:03)
[2016-10-21] MEDS: LACTOBACILLUS ACIDOPHILUS 1 GM PACKET PO SCH ×4 (09:14→21:04)
[2016-10-21] MEDS: ASPIRIN 81 MG CHEW TAB PO SCH (09:14)
[2016-10-21] MEDS: AZITHROMYCIN 250 MG TAB PO SCH (09:14)
[2016-10-21] MEDS: METOPROLOL TARTRATE 50 MG TAB PO SCH ×2 (09:14→21:03)
[2016-10-21] MEDS: ISOSORBIDE MONONITRATE 20 MG TAB PO SCH (09:14)
[2016-10-21 09:28] LABS: ANION GAP 14 MEQ/L (5-15); BICARBONATE 18.9 MEQ/L (21.0-32.0); BLOOD UREA NITROGEN 39 MG/DL (7-18); CHLORIDE 110 MEQ/L (98-107); GLOMERULAR FILTRATION RATE 34 ML/MIN (>89); POTASSIUM 3.7 MEQ/L (3.5-5.1); SODIUM (NA) 143 MEQ/L (136-145)
[2016-10-21 09:36] LABS: ALKALINE PHOSPHATASE 61 U/L (45-117); ALT (GPT) 31 U/L (12-78); AST (GOT) 19 U/L (15-37); TOTAL BILIRUBIN ADULT 0.3 MG/DL (0.2-1.0)
[2016-10-21] MEDS: RESP: ALBUTEROL 2.5 MG/IPRATROPIUM 0.5 MG NEB (SCH) NEB ×2 (10:10→19:53)
--- NOTE | 2016-10-21 11:28 | HHI.PR ---
Subjective Remarks Patient reports feeling better. had two loose BM overnight. Breathing is stable. Eating well. Objective Vitals Vital Signs Date Time Temp Pulse Resp B/P Pulse Ox O2 Delivery O2 Flow Rate FiO2 10/21/16 10:12 95 21 10/21/16 08:00 97.4 87 22 162/75 97 10/21/16 04:02 95 21 10/21/16 04:00 96.5 85 20 170/76 97 10/21/16 00:00 96.4 80 18 155/72 97 10/20/16 23:12 97 21 10/20/16 20:00 96.6 82 19 168/78 98 10/20/16 16:00 98.0 65 18 167/87 95 10/20/16 12:00 97.1 85 20 120/65 97 I/O 10/20/16 10/20/16 10/20/16 10/21/16 10/21/16 10/21/16 07:00 15:00 23:00 07:00 15:00 23:00 Intake Total 427 ml 440 ml 480 ml 1314 ml Output Total 100 ml Balance 327 ml 440 ml 480 ml 1314 ml Intake Oral 0 ml 440 ml 480 ml 240 ml IV Total 427 ml 1074 ml Output Urine Total 100 ml # Voids 5 3 5 6 # Bowel Movements 1 3 6 Result Diagram: 10/21/16 0845 10/21/16 0845 Imaging Last Impressions Gall Bladder Ultrasound 10/20/16 0000 Signed Impressions: Service Date/Time: Thursday, October 20, 2016 09:15 - CONCLUSION: 1. No acute abnormality. 2. Small right renal cysts. Asif Masterson Jr., MD Chest CT 10/20/16 0000 Signed Impressions: Service Date/Time: Thursday, October 20, 2016 10:20 - CONCLUSION: 1. No significant pleural effusion, airspace consolidation, or pneumothorax to explain patient's shortness of breath. 2. 5 mm solid subpleural nodule in the left lung apex. Please see Fleischner criteria below for followup recommendations. 3. 5 mm sub-solid nodule in the right upper lobe. No followup is recommended per 2017 Fleischner criteria. Guidelines from the 2017 Fleischner Society for the follow-up and management of newly detected indeterminate pulmonary nodules in persons >34 years old depend on nodule size (average of length and width) and underlying risk factors (including smoking and other risk factors). Please consider the following recommendations after clinical assessment of risk factors. For 4-6 mm nodules: In low risk patients no followup is recommended. In high risk patients, follow-up CT at 12 months; if unchanged, no further follow-up needed. Zay Salgado MD Abdomen/Pelvis CT 10/20/16 0000 Signed Impressions: Service Date/Time: Thursday, October 20, 2016 21:17 - CONCLUSION: 1. Negative for acute pancreatitis on CT examination. No calcified gallstones or biliary ductal dilatation. 2. No acute findings within the abdomen and pelvis. Ceasar Shoemaker MD Chest X-Ray 10/18/16 1151 Signed Impressions: Service Date/Time: Tuesday, October 18, 2016 12:02 - CONCLUSION: No acute disease. No significant change has occurred. Mohan Joseph MD Objective Remarks GENERAL: Elderly male in no acute distress CARDIOVASCULAR: Normal rate and regular rhythm without murmurs, gallops, or rubs. RESPIRATORY: Good respiratory efforts. Diffuse and coarse breath sounds bilaterally GASTROINTESTINAL: Abdomen soft, non-tender, non-distended. Normal active bowel sounds MUSCULOSKELETAL: Extremities without cyanosis, or edema. NEURO: Alert & Oriented x4 to person, place, time, situation. Moves all ext x4 PSYCH: Appropriate mood and affect. A/P Problem List: (1) COPD exacerbation ICD Code: J44.1 Status: Acute (2) Acute pancreatitis ICD Code: K85.90 Status: Acute (3) RICHARD (acute kidney injury) ICD Code: N17.9 Status: Acute Assessment and Plan 86-year-old male with: COPD exacerbation: - Appreciate pulmonology following. Continue Solu-Medrol. Plan to transition to oral prednisone tomorrow. Continue breathing treatments. Continue azithromycin. Diarrhea: The past 5 days. Patient is dehydrated and hasn't been eating much. cdiff neg. GI following. on lactinex. CEA elevated. Further plans per GI. Acute on chronic renal failure: Creatinine on admission was 2.71. Renal functions now closer to baseline. Discontinue IV fluid. Avoid nephrotoxins. Pancreatitis: Patient only complains of some discomfort in the left upper quadrant, lipase level is in the 2500's on admission have normalized. Ultrasound of the gallbladder is unremarkable. DM at home he is on 5 units of NPH in the morning and 10 units at night. on insulin ss and on diabetic diet. hold glipizide for now due to kidney function HTN: on isosorbide, metoprolol BPH: on terazosin Hyperlipidemia: on pravastatin Abnormal urinalysis: Urine culture is negative. DVT proph: heparin Discharge Planning Pending improvement or resolution of diarrhea. Further input from GI is appreciated. Problem Qualifiers (1) Acute pancreatitis: Qualified Code: K85.90 - Acute pancreatitis, unspecified complication status, unspecified pancreatitis type Tiara Tuttle MD Oct 21, 2016 11:28
--- NOTE | 2016-10-21 14:49 | HHI.GIFU ---
Subjective Remarks Comfortable in bed diarrhea much better no pain Objective Vitals I&O Vital Signs Date Time Temp Pulse Resp B/P Pulse Ox O2 Delivery O2 Flow Rate FiO2 10/21/16 12:00 97.5 84 20 124/64 95 10/21/16 10:12 95 21 10/21/16 08:00 97.4 87 22 162/75 97 10/21/16 04:02 95 21 10/21/16 04:00 96.5 85 20 170/76 97 10/21/16 00:00 96.4 80 18 155/72 97 10/20/16 23:12 97 21 10/20/16 20:00 96.6 82 19 168/78 98 10/20/16 16:00 98.0 65 18 167/87 95 I/O 10/20/16 10/20/16 10/20/16 10/21/16 10/21/16 10/21/16 07:00 15:00 23:00 07:00 15:00 23:00 Intake Total 427 ml 440 ml 480 ml 1314 ml Output Total 100 ml Balance 327 ml 440 ml 480 ml 1314 ml Intake Oral 0 ml 440 ml 480 ml 240 ml IV Total 427 ml 1074 ml Output Urine Total 100 ml # Voids 5 3 5 6 # Bowel Movements 1 3 6 Laboratory Laboratory Tests Test 10/20/16 10/21/16 20:15 08:45 Carcinoembryonic Antigen 14.0 CA 19-9 Antigen 157.1 White Blood Count 8.4 Red Blood Count 4.00 Hemoglobin 11.4 Hematocrit 33.8 Mean Corpuscular Volume 84.5 Mean Corpuscular Hemoglobin 28.4 Mean Corpuscular Hemoglobin 33.6 Concent Red Cell Distribution Width 14.4 Platelet Count 102 Mean Platelet Volume 7.8 Sodium Level 143 Potassium Level 3.7 Chloride Level 110 Carbon Dioxide Level 18.9 Anion Gap 14 Blood Urea Nitrogen 39 Creatinine 1.89 Estimat Glomerular Filtration 34 Rate Random Glucose 282 Calcium Level 8.4 Total Bilirubin 0.3 Aspartate Amino Transf 19 (AST/SGOT) Alanine Aminotransferase 31 (ALT/SGPT) Alkaline Phosphatase 61 Total Protein 6.0 Albumin 3.0 Lipase 370 Date/Time Procedure Status Source Growth 10/19/16 11:00 Cryptosporidium Exam - Final Complete Stool Stool NEGATIVE - NO CRYPTOSPORIDIUM ANTIGEN... 10/19/16 11:00 Stool Pus (BEREKET) - Final Complete Stool Stool NO WBC'S SEEN 10/19/16 11:00 Giardia Antigen (BEREKET) - Final Complete Stool Stool NEGATIVE - NO GIARDIA ANTIGEN DETECTE... 10/19/16 11:00 - Final Complete Stool Stool NO ENTERIC PATHOGENS DETECTED BY PCR... 10/18/16 13:03 Urine Culture - Final Complete Urine Catheterized Urine <10,000 CFU/ML MIXED GRAM POSITIVE FL... 10/18/16 12:12 Aerobic Blood Culture - Preliminary Resulted Blood Peripheral NO GROWTH IN 3 DAYS 10/18/16 12:12 Anaerobic Blood Culture - Preliminary Resulted Blood Peripheral NO GROWTH IN 3 DAYS 10/18/16 12:08 Influenza Types A,B Antigen (BEREKET) - Final Complete Nasal Washing NEGATIVE FOR FLU A AND B ANTIGEN.... Imaging Last 48 hours Impressions Gall Bladder Ultrasound 10/20/16 0000 Signed Impressions: Service Date/Time: Thursday, October 20, 2016 09:15 - CONCLUSION: 1. No acute abnormality. 2. Small right renal cysts. Asif Masterson Jr., MD Chest CT 10/20/16 0000 Signed Impressions: Service Date/Time: Thursday, October 20, 2016 10:20 - CONCLUSION: 1. No significant pleural effusion, airspace consolidation, or pneumothorax to explain patient's shortness of breath. 2. 5 mm solid subpleural nodule in the left lung apex. Please see Fleischner criteria below for followup recommendations. 3. 5 mm sub-solid nodule in the right upper lobe. No followup is recommended per 2017 Fleischner criteria. Guidelines from the 2017 Fleischner Society for the follow-up and management of newly detected indeterminate pulmonary nodules in persons >34 years old depend on nodule size (average of length and width) and underlying risk factors (including smoking and other risk factors). Please consider the following recommendations after clinical assessment of risk factors. For 4-6 mm nodules: In low risk patients no followup is recommended. In high risk patients, follow-up CT at 12 months; if unchanged, no further follow-up needed. Zay Salgado MD Abdomen/Pelvis CT 10/20/16 0000 Signed Impressions: Service Date/Time: Thursday, October 20, 2016 21:17 - CONCLUSION: 1. Negative for acute pancreatitis on CT examination. No calcified gallstones or biliary ductal dilatation. 2. No acute findings within the abdomen and pelvis. Ceasar Shoemaker MD Physical Exam HEENT: EOMI; normocephalic; atraumatic; no jaundice. CHEST: CTA CARDIAC: RRR ABDOMEN: Soft, nondistended, nontender; no hepatosplenomegaly; bowel sounds are present in all four quadrants. EXTREMITIES: No clubbing, cyanosis, or edema. SKIN: Normal; no rash; no jaundice. 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 Assessment and Plan Plan ASSESSMENT - diarrhea - onset 2d ago. + sick contact but says his had diverticulitis ? no fever, n/v, pain, travel, abx use per pt. stool cx neg, c diff neg - elevated lipase - was >2000 on admission and now improving PLAN - CT abd results noted - NOEL -Probably will pursue a colonoscopy on Sunday especially that his CEA is elevated - supportive care - further recommendations to follow Geo Turner MD Oct 21, 2016 14:49
[2016-10-21 20:39] LABS: BICARBONATE 19.6 MEQ/L (21.0-32.0)
[2016-10-21] MEDS: BUDESONIDE-FORMOTEROL 160/4.5 MCG INHALER INH SCH (21:02)
[2016-10-21] MEDS: PRAVASTATIN SOD 40 MG TAB PO SCH (21:03)
[2016-10-21] MEDS: GABAPENTIN 300 MG CAP PO SCH (21:03)
[2016-10-21] MEDS: TERAZOSIN HCL 1 MG CAP PO SCH (21:03)
[2016-10-21] MEDS ORDERED: INSULIN ASPART 1,000 UNITS/10 ML VIAL SQ ONE (23:30)
[2016-10-22] VITALS (8 sets, daily range): BP systolic 124–178; BP diastolic 60–94; PULSE 77–91; RESP 18–20; TEMP 96.3–97.9; O2SAT 95–98
[2016-10-22] MEDS: INSULIN ASPART SUPPLEMENTAL SCALE SQ SCH ×4 (06:07→21:19)
[2016-10-22] MEDS: HEPARIN SODIUM - SQ 10,000 UNITS/ML VIAL SQ SCH ×2 (08:23→21:19)
[2016-10-22] MEDS: AZITHROMYCIN 250 MG TAB PO SCH (08:24)
[2016-10-22] MEDS: ASPIRIN 81 MG CHEW TAB PO SCH (08:24)
[2016-10-22] MEDS: PANTOPRAZOLE SOD 40 MG DELAYED RELEASE TAB PO SCH ×2 (08:24→21:16)
[2016-10-22] MEDS: BUDESONIDE-FORMOTEROL 160/4.5 MCG INHALER INH SCH ×2 (08:24→21:17)
[2016-10-22] MEDS: METOPROLOL TARTRATE 50 MG TAB PO SCH ×2 (08:24→21:16)
[2016-10-22] MEDS: ISOSORBIDE MONONITRATE 20 MG TAB PO SCH (08:25)
[2016-10-22] MEDS: LACTOBACILLUS ACIDOPHILUS 1 GM PACKET PO SCH ×5 (08:26→21:00)
[2016-10-22] MEDS: predniSONE 20 MG TAB PO SCH ×2 (08:26→21:17)
[2016-10-22] MEDS: SODIUM CHLORIDE 0.9% FLUSH 10 ML FLUSH IV FLUSH SCH ×2 (08:27→21:17)
[2016-10-22 08:51] LABS: HEMATOCRIT 37.5 % (39.0-51.0); MEAN CELL VOLUME 84.5 FL (80.0-100.0); MEAN CORPUSCULAR HEMOGLOBIN 28.1 PG (27.0-34.0); MEAN CORPUSCULAR HGB CONC 33.3 % (32.0-36.0); PLATELET COUNT 108 TH/MM3 (150-450); RED BLOOD COUNT 4.44 MIL/MM3 (4.50-5.90); RED CELL DISTRIBUTION WIDTH 14.5 % (11.6-17.2); REVIEW FLAG FINAL; WHITE BLOOD COUNT 7.6 TH/MM3 (4.0-11.0)
[2016-10-22] MEDS: RESP: ALBUTEROL 2.5 MG/IPRATROPIUM 0.5 MG NEB (SCH) NEB ×3 (08:54→19:42)
[2016-10-22] MEDS ORDERED: PRED20 PO (13:26)
[2016-10-22] MEDS ORDERED: SYMB160A INH (13:26)
--- NOTE | 2016-10-22 13:27 | HHI.DCPOC ---
Discharge Care Plan Diagnosis: (1) COPD exacerbation (2) Acute pancreatitis (3) RICHARD (acute kidney injury) Goals to Promote Your Health * To prevent worsening of your condition and complications * To maintain your health at the optimal level Directions to Meet Your Goals Take your medications as prescribed Follow your dietary instruction Follow activity as directed Keep your appointments as scheduled Take your immunizations and boosters as scheduled If your symptoms worsen call your PCP, if no PCP go to Urgent Care Center or Emergency Room Smoking is Dangerous to Your Health. Avoid second hand smoke Call the 24-hour hour crisis hotline for domestic abuse at Tiara Tuttle MD Oct 22, 2016 13:27
--- NOTE | 2016-10-22 14:22 | HHI.PR ---
Subjective Remarks Patient reports is feeling much better today. He has been ambulating. Not requiring oxygen. He reports that the diarrhea resolved. Objective Vitals Vital Signs Date Time Temp Pulse Resp B/P Pulse Ox O2 Delivery O2 Flow Rate FiO2 10/22/16 12:32 97.4 84 20 124/60 95 10/22/16 08:55 95 21 10/22/16 08:49 96.4 77 20 178/86 95 10/22/16 04:00 97.9 86 19 150/70 95 10/22/16 00:00 97.8 90 19 141/94 95 10/21/16 20:00 97.7 86 19 178/85 96 10/21/16 19:59 97 Nasal Cannula 21 10/21/16 16:00 97.8 88 22 129/72 98 I/O 10/21/16 10/21/16 10/21/16 10/22/16 10/22/16 10/22/16 07:00 15:00 23:00 07:00 15:00 23:00 Intake Total 1314 ml 1680 ml 240 ml Balance 1314 ml 1680 ml 240 ml Intake Oral 240 ml 1680 ml 240 ml IV Total 1074 ml # Voids 6 9 3 # Bowel Movements 6 5 2 Result Diagram: 10/22/16 0836 10/21/16 1945 Imaging Last Impressions Gall Bladder Ultrasound 10/20/16 0000 Signed Impressions: Service Date/Time: Thursday, October 20, 2016 09:15 - CONCLUSION: 1. No acute abnormality. 2. Small right renal cysts. Asif Masterson Jr., MD Chest CT 10/20/16 0000 Signed Impressions: Service Date/Time: Thursday, October 20, 2016 10:20 - CONCLUSION: 1. No significant pleural effusion, airspace consolidation, or pneumothorax to explain patient's shortness of breath. 2. 5 mm solid subpleural nodule in the left lung apex. Please see Fleischner criteria below for followup recommendations. 3. 5 mm sub-solid nodule in the right upper lobe. No followup is recommended per 2017 Fleischner criteria. Guidelines from the 2017 Fleischner Society for the follow-up and management of newly detected indeterminate pulmonary nodules in persons >34 years old depend on nodule size (average of length and width) and underlying risk factors (including smoking and other risk factors). Please consider the following recommendations after clinical assessment of risk factors. For 4-6 mm nodules: In low risk patients no followup is recommended. In high risk patients, follow-up CT at 12 months; if unchanged, no further follow-up needed. Zay Salgado MD Abdomen/Pelvis CT 10/20/16 0000 Signed Impressions: Service Date/Time: Thursday, October 20, 2016 21:17 - CONCLUSION: 1. Negative for acute pancreatitis on CT examination. No calcified gallstones or biliary ductal dilatation. 2. No acute findings within the abdomen and pelvis. Ceasar Shoemaker MD Chest X-Ray 10/18/16 1151 Signed Impressions: Service Date/Time: Tuesday, October 18, 2016 12:02 - CONCLUSION: No acute disease. No significant change has occurred. Mohan Joseph MD Objective Remarks GENERAL: Elderly male in no acute distress CARDIOVASCULAR: Normal rate and regular rhythm without murmurs, gallops, or rubs. RESPIRATORY: Good respiratory efforts. Clear to auscultation bilaterally. GASTROINTESTINAL: Abdomen soft, non-tender, non-distended. Normal active bowel sounds MUSCULOSKELETAL: Extremities without cyanosis, or edema. NEURO: Alert & Oriented x4 to person, place, time, situation. Moves all ext x4 PSYCH: Appropriate mood and affect. A/P Problem List: (1) COPD exacerbation ICD Code: J44.1 Status: Acute (2) Acute pancreatitis ICD Code: K85.90 Status: Acute (3) RICHARD (acute kidney injury) ICD Code: N17.9 Status: Acute Assessment and Plan 86-year-old male admitted with: COPD exacerbation: - Appreciate pulmonology following. Transition to oral prednisone today. Continue breathing treatments. Continue azithromycin. Diarrhea: GI following. C. difficile negative. On lactinex. CEA elevated. GI planning for colonoscopy tomorrow morning. I discussed with Dr. Turner. Acute on chronic renal failure: Unsure what the patient's baseline is. Creatinine on admission was 2.71. Has been fluctuating. Avoid nephrotoxins. Continue to monitor. He received IV fluid for hydration. This was discontinued. Pancreatitis: lipase level in the 2500's on admission have normalized. Ultrasound of the gallbladder is unremarkable. Patient is asymptomatic. Diet as tolerated. DM at home he is on 5 units of NPH in the morning and 10 units at night. on insulin ss and on diabetic diet. hold glipizide for now due to kidney function. Requiring more insulin due to steroids. HTN: on isosorbide, metoprolol BPH: on terazosin Hyperlipidemia: on pravastatin Abnormal urinalysis: Urine culture is negative. DVT proph: heparin Discharge Planning GI planning colonoscopy tomorrow morning. Problem Qualifiers (1) Acute pancreatitis: Qualified Code: K85.90 - Acute pancreatitis, unspecified complication status, unspecified pancreatitis type Tiara Tuttle MD Oct 22, 2016 14:22
[2016-10-22] MEDS ORDERED: PEG (High)/E-LYTE SOLN 4000 ML BTL PO ONE (15:15)
[2016-10-22] MEDS: GABAPENTIN 300 MG CAP PO SCH (21:16)
[2016-10-22] MEDS: PRAVASTATIN SOD 40 MG TAB PO SCH (21:16)
[2016-10-22] MEDS: TERAZOSIN HCL 1 MG CAP PO SCH (21:16)
--- NOTE | 2016-10-22 21:51 | HHI.GIFU ---
Subjective Remarks Patient comfortable in bed no new complaints neither he nor his daughter want to pursue a colonoscopy Objective Vitals I&O Vital Signs Date Time Temp Pulse Resp B/P Pulse Ox O2 Delivery O2 Flow Rate FiO2 10/22/16 20:00 96.3 91 18 171/79 98 10/22/16 19:43 98 10/22/16 16:00 97.1 86 20 155/74 96 10/22/16 12:32 97.4 84 20 124/60 95 10/22/16 08:55 95 21 10/22/16 08:49 96.4 77 20 178/86 95 10/22/16 04:00 97.9 86 19 150/70 95 10/22/16 00:00 97.8 90 19 141/94 95 I/O 10/21/16 10/21/16 10/21/16 10/22/16 10/22/16 10/22/16 07:00 15:00 23:00 07:00 15:00 23:00 Intake Total 1314 ml 1680 ml 240 ml 480 ml Balance 1314 ml 1680 ml 240 ml 480 ml Intake Oral 240 ml 1680 ml 240 ml 480 ml IV Total 1074 ml # Voids 6 9 3 4 # Bowel Movements 6 5 2 Laboratory Laboratory Tests Test 10/22/16 08:36 White Blood Count 7.6 Red Blood Count 4.44 Hemoglobin 12.5 Hematocrit 37.5 Mean Corpuscular Volume 84.5 Mean Corpuscular Hemoglobin 28.1 Mean Corpuscular Hemoglobin 33.3 Concent Red Cell Distribution Width 14.5 Platelet Count 108 Mean Platelet Volume 7.7 Date/Time Procedure Status Source Growth 10/19/16 11:00 Cryptosporidium Exam - Final Complete Stool Stool NEGATIVE - NO CRYPTOSPORIDIUM ANTIGEN... 10/19/16 11:00 Stool Pus (BEREKET) - Final Complete Stool Stool NO WBC'S SEEN 10/19/16 11:00 Giardia Antigen (BEREKET) - Final Complete Stool Stool NEGATIVE - NO GIARDIA ANTIGEN DETECTE... 10/19/16 11:00 - Final Complete Stool Stool NO ENTERIC PATHOGENS DETECTED BY PCR... 10/18/16 13:03 Urine Culture - Final Complete Urine Catheterized Urine <10,000 CFU/ML MIXED GRAM POSITIVE FL... 10/18/16 12:12 Aerobic Blood Culture - Preliminary Resulted Blood Peripheral NO GROWTH IN 4 DAYS 10/18/16 12:12 Anaerobic Blood Culture - Preliminary Resulted Blood Peripheral NO GROWTH IN 4 DAYS 10/18/16 12:08 Influenza Types A,B Antigen (BEREKET) - Final Complete Nasal Washing NEGATIVE FOR FLU A AND B ANTIGEN.... Physical Exam HEENT: EOMI; normocephalic; atraumatic; no jaundice. CHEST: CTA CARDIAC: RRR ABDOMEN: Soft, nondistended, nontender; no hepatosplenomegaly; bowel sounds are present in all four quadrants. EXTREMITIES: No clubbing, cyanosis, or edema. SKIN: Normal; no rash; no jaundice. 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 Assessment and Plan Plan ASSESSMENT - diarrhea - onset 2d ago. + sick contact but says his had diverticulitis ? no fever, n/v, pain, travel, abx use per pt. stool cx neg, c diff neg - elevated lipase - was >2000 on admission and now improving Elevated CEA PLAN - CT abd results noted - NOEL -Patient and family members refusing colonoscopy after risks and benefits and alternatives were discussed - supportive care - further recommendations to follow Not much to add from a GI perspective We will sign off Geo Turner MD Oct 22, 2016 21:51
[2016-10-23] VITALS: BP 146/70; PULSE 90; RESP 17; TEMP 97.2; O2SAT 97
[2016-10-23] MEDS: hydrALAZINE HCL 10 MG TAB PO PRN (03:52)
[2016-10-23 04:00] VITALS: BP 178/95; PULSE 89; RESP 19; TEMP 97.7; O2SAT 97
[2016-10-23] MEDS: INSULIN ASPART SUPPLEMENTAL SCALE SQ SCH ×2 (06:06→11:41)
[2016-10-23 08:00] VITALS: BP 147/76; PULSE 83; RESP 18; TEMP 97.9; O2SAT 96
[2016-10-23 08:14] LABS: HEMATOCRIT 37.2 % (39.0-51.0); MEAN CELL VOLUME 84.3 FL (80.0-100.0); MEAN CORPUSCULAR HEMOGLOBIN 28.6 PG (27.0-34.0); MEAN CORPUSCULAR HGB CONC 33.9 % (32.0-36.0); PLATELET COUNT 117 TH/MM3 (150-450); RED BLOOD COUNT 4.41 MIL/MM3 (4.50-5.90); RED CELL DISTRIBUTION WIDTH 14.1 % (11.6-17.2); REVIEW FLAG FINAL; WHITE BLOOD COUNT 6.5 TH/MM3 (4.0-11.0)
[2016-10-23 08:50] LABS: POTASSIUM 4.6 MEQ/L (3.5-5.1)
[2016-10-23] MEDS: predniSONE 20 MG TAB PO SCH (09:28)
[2016-10-23] MEDS: AZITHROMYCIN 250 MG TAB PO SCH (09:28)
[2016-10-23] MEDS: FLUDROCORTISONE ACETATE 0.1 MG TAB PO SCH (09:28)
[2016-10-23] MEDS: PANTOPRAZOLE SOD 40 MG DELAYED RELEASE TAB PO SCH (09:29)
[2016-10-23] MEDS: HEPARIN SODIUM - SQ 10,000 UNITS/ML VIAL SQ SCH (09:29)
[2016-10-23] MEDS: METOPROLOL TARTRATE 50 MG TAB PO SCH (09:29)
[2016-10-23] MEDS: ASPIRIN 81 MG CHEW TAB PO SCH (09:29)
[2016-10-23] MEDS: LACTOBACILLUS ACIDOPHILUS 1 GM PACKET PO SCH ×2 (09:29→13:00)
[2016-10-23] MEDS: ISOSORBIDE MONONITRATE 20 MG TAB PO SCH (09:31)
[2016-10-23] MEDS: BUDESONIDE-FORMOTEROL 160/4.5 MCG INHALER INH SCH (09:32)
[2016-10-23] MEDS: SODIUM CHLORIDE 0.9% FLUSH 10 ML FLUSH IV FLUSH SCH (09:33)
--- NOTE | 2016-10-23 10:47 | HHI.PR ---
Subjective Remarks breathing - "better" no abdominal pain, nausea or vomiting, reviewed blood sugars with him states [facility] seen with son at bedside- I brought up the colonoscopy- patient refused Objective Vitals Vital Signs Date Time Temp Pulse Resp B/P Pulse Ox O2 Delivery O2 Flow Rate FiO2 10/23/16 08:00 97.9 83 18 147/76 96 10/23/16 04:00 97.7 89 19 178/95 97 10/23/16 00:00 97.2 90 17 146/70 97 10/22/16 20:00 96.3 91 18 171/79 98 10/22/16 19:43 98 10/22/16 16:00 97.1 86 20 155/74 96 10/22/16 12:32 97.4 84 20 124/60 95 I/O 10/22/16 10/22/16 10/22/16 10/23/16 10/23/16 10/23/16 07:00 15:00 23:00 07:00 15:00 23:00 Intake Total 240 ml 480 ml 480 ml 240 ml Balance 240 ml 480 ml 480 ml 240 ml Intake Oral 240 ml 480 ml 480 ml 240 ml # Voids 3 4 4 3 # Bowel Movements 2 3 2 Result Diagram: 10/23/16 0751 10/23/16 0751 Imaging Last Impressions Gall Bladder Ultrasound 10/20/16 0000 Signed Impressions: Service Date/Time: Thursday, October 20, 2016 09:15 - CONCLUSION: 1. No acute abnormality. 2. Small right renal cysts. Asif Masterson Jr., MD Chest CT 10/20/16 0000 Signed Impressions: Service Date/Time: Thursday, October 20, 2016 10:20 - CONCLUSION: 1. No significant pleural effusion, airspace consolidation, or pneumothorax to explain patient's shortness of breath. 2. 5 mm solid subpleural nodule in the left lung apex. Please see Fleischner criteria below for followup recommendations. 3. 5 mm sub-solid nodule in the right upper lobe. No followup is recommended per 2017 Fleischner criteria. Guidelines from the 2017 Fleischner Society for the follow-up and management of newly detected indeterminate pulmonary nodules in persons >34 years old depend on nodule size (average of length and width) and underlying risk factors (including smoking and other risk factors). Please consider the following recommendations after clinical assessment of risk factors. For 4-6 mm nodules: In low risk patients no followup is recommended. In high risk patients, follow-up CT at 12 months; if unchanged, no further follow-up needed. Zay Salgado MD Abdomen/Pelvis CT 10/20/16 0000 Signed Impressions: Service Date/Time: Thursday, October 20, 2016 21:17 - CONCLUSION: 1. Negative for acute pancreatitis on CT examination. No calcified gallstones or biliary ductal dilatation. 2. No acute findings within the abdomen and pelvis. Ceasar Shoemaker MD Chest X-Ray 10/18/16 1151 Signed Impressions: Service Date/Time: Tuesday, October 18, 2016 12:02 - CONCLUSION: No acute disease. No significant change has occurred. Mohan Joseph MD Objective Remarks anicteric sclerae no nuchal rigidity decreased breath sounds, no rales or wheezes abdomen soft, nontender extremities no edema neuro exam- unremarkable A/P Problem List: (1) COPD exacerbation ICD Code: J44.1 Status: Acute (2) Acute pancreatitis ICD Code: K85.90 Status: Acute (3) RICHARD (acute kidney injury) ICD Code: N17.9 Status: Acute Assessment and Plan 86-year-old male admitted with: COPD exacerbation: - Appreciate pulmonology following. - change to po prednisone 10/22 - Continue breathing treatments. Continue azithromycin. Diarrhea: GI following. C. difficile negative. On lactinex. CEA elevated. - GI recommended colonoscopy- patient refused- Acute on chronic renal failure: Unsure what the patient's baseline is. likely with underlying diabetic nephropathy Creatinine on admission was 2.71. Has been fluctuating. Avoid nephrotoxins. Continue to monitor. - advise adequate hydration Pancreatitis: lipase level in the 2500's on admission have normalized. Ultrasound of the gallbladder is unremarkable. - no pain complains Patient is asymptomatic. toelrating diet DM at home he is on 5 units of NPH in the morning and 10 units at night. on insulin ss and on diabetic diet. hold glipizide for now due to kidney function. Requiring more insulin due to steroids. -continue to monitor as OP HTN: on isosorbide, metoprolol BPH: on terazosin Hyperlipidemia: on pravastatin Abnormal urinalysis: Urine culture is negative. DVT proph: heparin DC home today D/w son regarding diarrhea worsening renal functions if gets dehydrated. Advise adequate hydration [facility]CP Problem Qualifiers (1) Acute pancreatitis: Qualified Code: K85.90 - Acute pancreatitis, unspecified complication status, unspecified pancreatitis type Jorge Luis Rosas MD Oct 23, 2016 10:47
[2016-10-23 12:00] VITALS: BP 102/57; PULSE 81; RESP 20; TEMP 98.2; O2SAT 97
--- NOTE | 2016-10-23 12:27 | HHI.DS ---
Discharge Summary Admission Date Oct 18, 2016 at 13:45 Discharge Date: Oct 23, 2016 Admitting Diagnosis Acute Pancreatitis, RICHARD, COPD Exacerbation (1) COPD exacerbation ICD Code: J44.1 Diagnosis: Principal (2) Acute pancreatitis ICD Code: K85.90 Diagnosis: Principal (3) RICHARD (acute kidney injury) ICD Code: N17.9 Diagnosis: Principal Procedures none Brief History - From Admission Patient is a 86-year-old male with past medical history of COPD, hypertension, hyperlipidemia, diabetes, chronic renal insufficiency presented to the emergency room because he's been having loose stools for 5 times a day for the past 5 days. Of note, patient tells me that his just got discharged from the hospital from a virus where she had nausea vomiting and cough. Patient states that he also has been having "rattle in his chest ". He describes his stools as very watery. Non-bloody. He has also been coughing for the past 3-4 days and coughing up phlegm which he states is white. He denies any fevers however he admits to chills. He doesn't have a tier and detonator that he follows. He denies any abdominal pain, nausea vomiting, chest pain. He does not use any oxygen at home. His short of breath however he is able to speak in full sentences and states that his shortness of breath hasn't worsened since being in the emergency room. Son and grandson at bedside. He tells me that his last colonoscopy, he thinks was 4-5 years ago and was normal CBC/BMP: 10/23/16 0751 10/23/16 0751 Significant Findings Laboratory Tests Test 10/20/16 10/21/16 10/21/16 10/22/16 20:15 08:45 19:45 08:36 Carcinoembryonic Antigen 14.0 NG/ML (0.2-5.0) CA 19-9 Antigen 157.1 U/ML (0.0-35.0) Red Blood Count 4.00 MIL/MM3 4.44 MIL/MM3 (4.50-5.90) (4.50-5.90) Hemoglobin 11.4 GM/DL 12.5 GM/DL (13.0-17.0) (13.0-17.0) Hematocrit 33.8 % 37.5 % (39.0-51.0) (39.0-51.0) Platelet Count 102 TH/MM3 108 TH/MM3 (150-450) (150-450) Chloride Level 110 MEQ/L 108 MEQ/L (98-107) (98-107) Carbon Dioxide Level 18.9 MEQ/L 19.6 MEQ/L (21.0-32.0) (21.0-32.0) Blood Urea Nitrogen 39 MG/DL (7-18) 42 MG/DL (7-18) Creatinine 1.89 MG/DL 2.36 MG/DL (0.60-1.30) (0.60-1.30) Estimat Glomerular Filtration 34 ML/MIN (>89) 26 ML/MIN (>89) Rate Random Glucose 282 MG/DL 432 MG/DL (74-106) (74-106) Calcium Level 8.4 MG/DL 8.1 MG/DL (8.5-10.1) (8.5-10.1) Total Protein 6.0 GM/DL (6.4-8.2) Albumin 3.0 GM/DL (3.4-5.0) Test 10/23/16 07:51 Red Blood Count 4.41 MIL/MM3 (4.50-5.90) Hemoglobin 12.6 GM/DL (13.0-17.0) Hematocrit 37.2 % (39.0-51.0) Platelet Count 117 TH/MM3 (150-450) Blood Urea Nitrogen 48 MG/DL (7-18) Creatinine 2.15 MG/DL (0.60-1.30) Estimat Glomerular Filtration 29 ML/MIN (>89) Rate Random Glucose 274 MG/DL (74-106) Imaging Last Impressions Gall Bladder Ultrasound 10/20/16 0000 Signed Impressions: Service Date/Time: Thursday, October 20, 2016 09:15 - CONCLUSION: 1. No acute abnormality. 2. Small right renal cysts. Asif Masterson Jr., MD Chest CT 10/20/16 0000 Signed Impressions: Service Date/Time: Thursday, October 20, 2016 10:20 - CONCLUSION: 1. No significant pleural effusion, airspace consolidation, or pneumothorax to explain patient's shortness of breath. 2. 5 mm solid subpleural nodule in the left lung apex. Please see Fleischner criteria below for followup recommendations. 3. 5 mm sub-solid nodule in the right upper lobe. No followup is recommended per 2017 Fleischner criteria. Guidelines from the 2017 Fleischner Society for the follow-up and management of newly detected indeterminate pulmonary nodules in persons >34 years old depend on nodule size (average of length and width) and underlying risk factors (including smoking and other risk factors). Please consider the following recommendations after clinical assessment of risk factors. For 4-6 mm nodules: In low risk patients no followup is recommended. In high risk patients, follow-up CT at 12 months; if unchanged, no further follow-up needed. Zay Salgado MD Abdomen/Pelvis CT 10/20/16 0000 Signed Impressions: Service Date/Time: Thursday, October 20, 2016 21:17 - CONCLUSION: 1. Negative for acute pancreatitis on CT examination. No calcified gallstones or biliary ductal dilatation. 2. No acute findings within the abdomen and pelvis. Ceasar Shoemaker MD Chest X-Ray 10/18/16 1151 Signed Impressions: Service Date/Time: Tuesday, October 18, 2016 12:02 - CONCLUSION: No acute disease. No significant change has occurred. Mohan Joseph MD PE at Discharge anicteric sclerae no nuchal rigidity decreased breath sounds, no rales or wheezes abdomen soft, nontender extremities no edema neuro exam- unremarkable Pt update on day of discharge awake and alert, good sats at room air lungs no wheezes abdomen soft Hospital Course 86-year-old male admitted with: COPD exacerbation: - Appreciate pulmonology following. - change to po prednisone 10/22 - Continue breathing treatments. Continue azithromycin. Diarrhea: GI following. C. difficile negative. On lactinex. CEA elevated. - GI recommended colonoscopy- patient refused- Acute on chronic renal failure: Unsure what the patient's baseline is. likely with underlying diabetic nephropathy Creatinine on admission was 2.71. Has been fluctuating. Avoid nephrotoxins. Continue to monitor. - advise adequate hydration Pancreatitis: lipase level in the 2500's on admission have normalized. Ultrasound of the gallbladder is unremarkable. - no pain complains Patient is asymptomatic. toelrating diet DM at home he is on 5 units of NPH in the morning and 10 units at night. on insulin ss and on diabetic diet. hold glipizide for now due to kidney function. Requiring more insulin due to steroids. -continue to monitor as OP HTN: on isosorbide, metoprolol BPH: on terazosin Hyperlipidemia: on pravastatin Abnormal urinalysis: Urine culture is negative. DVT proph: heparin DC home today D/w son regarding diarrhea worsening renal functions if gets dehydrated. Advise adequate hydration [facility] Pt Condition on Discharge: Stable Discharge Disposition: Disch w/ Home Health Serv Discharge Time: <= 30 minutes Discharge Instructions DIET: Follow Instructions for: Heart Healthy Diet, Diabetic Diet Speech Therapy-Diet Recommends: Regular Activities you can perform: Weight Bearing as Jerrica Activities to Avoid: Strenuous Activity Follow up Referrals: PCP Follow-up New Medications: Prednisone (Prednisone) 20 Mg Tab 20 MG PO DIRECTED 20 MG twice a day x 3 days, then 20 MG daily x 2 days Inflammation #8 Ref 0 TAB Budesonide-Formoterol Inh (Symbicort Inh) 160-4.5 Mcg/Act Aero 1 PUFF INH Q12HR #1 INHALER Continued Medications: Albuterol 18 GM Inh (Ventolin Hfa 18 GM Inh) 90 Mcg/Act Aer 2 PUFF INH QID PRN SHORTNESS OF BREATH #1 Ref 0 INHALER Aspirin (Aspirin) 81 Mg Chew 81 MG CHEW DAILY Ref 0 TAB Clobetasol Topical (Clobetasol Topical) 0.05% Soln 1 APPLIC TOPICAL BID PRN DRY SKIN #25 Ref 0 ML Clotrimazole Topical (Clotrimazole Topical) 1% Soln 1 APPLIC TOPICAL BID Fungal Infection #10 Ref 0 ML Waldo Tar-Salicylic Acid-Sulfur Topical (Pazol Xs Topical) 1-2-2% Sham 1 APPLIC TOPICAL 3XPER WEEK PRN SCALP IRRITATION #118 Ref 0 ML Fludrocortisone (Fludrocortisone) 0.1 Mg Tab 0.1 MG PO SUNDAY #30 Ref 0 TAB Fludrocortisone (Fludrocortisone) 0.1 Mg Tab 0.1 MG PO SUNDAY #30 Ref 0 TAB Gabapentin (Gabapentin) 300 Mg Cap 300 MG PO HS #30 Ref 0 CAP Glipizide (Glipizide) 10 Mg Tab 10 MG PO BIDAC Take 30 minutes before a meal #60 Ref 0 TAB Guaifenesin Liq (Guaifenesin Liq) 100 mg/5 ML Soln 10 ML PO QID PRN COUGH #1 Ref 0 BOTTLE Hydroxyzine Pamoate (Hydroxyzine Pamoate) 25 Mg Cap 25 MG PO Q6H PRN ITCHING Ref 0 CAP Insulin Human NPH Inj (Novolin N Inj) 1,000 Unit/10 Ml Vial Unknown Dose SQ BID Blood Sugar Management #1 Ref 0 INJECTION Isosorbide Mononitrate (Isosorbide Mononitrate) 20 Mg Tab 30 MG PO DAILY Take 2 doses 7 hours apart. Prevent Chest Pain #60 Ref 0 TAB Lactic Acid (Ammonium Lactate) (Ammonium Lactate) 12 % Cre 1 APPLIC TOP BID APPLY TO: PRN DRY SKIN CRE Lisinopril (Lisinopril) 10 Mg Tab 5 MG PO DAILY #30 Ref 0 TAB Loratadine (Allergy Relief) 10 Mg Tab 10 MG PO DAILY TAB Menthol Topical (Bengay Cold Therapy Topical) 5 % Gel 1 APPLIC TOPICAL QID PRN MUSCLE PAIN #1 Ref 0 TUBE Methocarbamol (Methocarbamol) 750 Mg Tab 750 MG PO TID PRN MUSCLE PAIN #120 Ref 0 TAB Metoprolol Tartrate (Metoprolol Tartrate) 100 Mg Tab 50 MG PO BID #60 Ref 0 TAB Nitroglycerin SL (Nitroglycerin SL) 0.4 Mg Subl 0.4 MG SL DIRECTED ONE TABLET UNDER THE TONGUE NEEDED FOR CHEST PAIN, MAY REPEAT EVERY FIVE MINUTES FOR A TOTAL OF 3 DOSES OR CALL 911 IF NO RELIEF PRN CHEST PAIN #100 Ref 0 TAB.SL Omeprazole (Omeprazole) 20 Mg Tab 20 MG PO BID #30 Ref 0 TAB Pantoprazole (Pantoprazole) 40 Mg Tab 40 MG PO BID Reflux #30 Ref 0 TAB Simvastatin (Simvastatin) 40 Mg Tab 40 MG PO HS Cholesterol Management #30 Ref 0 TAB Terazosin (Terazosin) 2 Mg Cap 2 MG PO HS #30 Ref 0 CAP Tramadol (Tramadol) 50 Mg Tab 50 MG PO QID PRN MUSCLE PAIN Ref 0 TAB Jorge Luis Rosas MD Oct 23, 2016 12:27
--- NOTE | 2016-10-23 12:54 | HHI.FF ---
Face to Face Verification Diagnosis: (1) COPD exacerbation (2) RICHARD (acute kidney injury) (3) DM (diabetes mellitus) Physical Therapy Order: Evaluate and Treat, Improve ambulation Home Health Nursing Order: Medical education Signs/symptoms of disease process Diabetic education Nursing assessment with vital signs Application Internship Order: To Evaluate: Support services I have seen patient Isac Marina on 10/23/16. My clinical findings support the need for the requested home health care services because: Ltd mobility - disease progression Patient has SOB Need for psychosocial assistance I certify that my clinical findings support that this patient is homebound because: Hx COPD- exertion dyspnea/weakness Need for psychosocial assistance Jorge Luis Rosas MD Oct 23, 2016 12:54
--- NOTE | 2016-10-24 08:57 | RSPPFT ---
DATE OF PROCEDURE: 10/23/16 COMMENTS: VOLUMES DYNAMIC: FVC and FEV1 moderately reduced. FLOWS: FEV1% normal; FEF 25-75 moderately reduced. IMPRESSION: This appears to be a moderate obstructive defect although restriction could not be excluded without full lung volumes. Minimal change post-bronchodilator.
== END 2016-10-23 14:37 | disposition home health service (06) | DRG 190 ==
LOC: NEPE 11:24 → NEDA 13:45 → HOCB 14:54
PROVIDERS: ADMIT Internal Medicine; ATTEND Internal Medicine
DX: J44.1 Chronic obstructive pulmonary disease with (acute) exacerbation (principal); K85.90 Acute pancreatitis without necrosis or infection, unspecified; N17.9 Acute kidney failure, unspecified; N18.4 Chronic kidney disease, stage 4 (severe); E86.0 Dehydration; D64.9 Anemia, unspecified; E11.22 Type 2 diabetes mellitus with diabetic chronic kidney disease; E78.5 Hyperlipidemia, unspecified; R19.7 Diarrhea, unspecified; Z66 Do not resuscitate; R97.0 Elevated carcinoembryonic antigen [CEA]; I12.9 Hypertensive chronic kidney disease with stage 1 through stage 4 chronic kidney disease, or unspecified chronic kidney disease; N40.0 Benign prostatic hyperplasia without lower urinary tract symptoms; Z79.4 Long term (current) use of insulin; Z87.891 Personal history of nicotine dependence
CPT/HCPCS: 71010; 71250; 74176; 76705; 80048; 80053; 81001; 82378; 82550; 82948; 83605; 83690; 83735; 84484; 85025; 85027; 86301; 87040; 87086; 87205; 87328; 87329; 87493; 87506; 87804; 93005; 93306; 94060; 94150; 94620; 94640; 94664; 94667; 94668; 96365; 96375; 99281; J0456; J0696; J1644; J1815; J1940; J2920; J2930; J7030; J7050; J7512; J7613; Q9963